=== PATIENT | male | born 1960 | race Caucasian/White ===

== ENCOUNTER 2024-10-05 07:25 | Outpatient (CLI) | payer OTHER, SELFPAY ==
--- OUTSIDE RECORDS SUMMARY | 2024-10-05 07:35 | XMS_ITS | Referral Summary ---
Author Organization [place] [id number] [facility] Address [address] [place] [address] Care Team Providers Care Camera Operator Name Role Phone No, Physician Primary Care Provider [phone] Allergies No known active allergies Medications rosuvastatin (CRESTOR) 10 mg tablet Take 10 mg by mouth nightly Active amiodarone (PACERONE) 400 mg tabletIndications :Prevention of Recurrent Atrial Fibrillation Take 1 tablet (400 mg total) by mouth 2 (two) times a day for 4 days 8 tablet 0 Active amiodarone (PACERONE) 200 mg tabletIndications :Prevention of Recurrent Atrial Fibrillation Take 1 tablet (200 mg total) by mouth daily 30 tablet 1 0 Active aspirin 81 mg enteric coated tablet Take 1 tablet (81 mg total) by mouth daily 30 tablet 11 0 Active metoprolol (LOPRESSOR) 25 mg tablet Take 0.25 tablets (6.25 mg total) by mouth 2 (two) times a day 15 tablet 1 0 Active traMADol (ULTRAM) 50 mg tablet Take 1 tablet (50 mg total) by mouth every 6 (six) hours as needed for pain 0 Active Active Problems Problem Noted Date Diagnosed Date Coronary artery disease of n ative heart with stable angina pectoris 07/04/2019 Overview (07/04/2019): Added automatically from request for surgery [id number] Social History Tobacco Use Types Packs/Day Years Used Date Smoking Tobacco: Never Smokeless Tobacco: Never PHQ-2 Answer Date Recorded PHQ-2 Score 0 07/04/2019 Sex and Gender Information Value Date Recorded Sex Assigned at Not on file 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 Gender Identity Not on file Sexual Orientation Not on file Last Filed Vital Signs Vital Sign Reading Time Taken Comments Blood Pressure 139/72 08/09/2019 11:17 AM CDT Pulse 72 08/09/2019 11:17 AM CDT Temperature 36.8 C (98.2 F) 08/09/2019 11:17 AM CDT Respiratory Rate 14 08/09/2019 11:17 AM CDT Oxygen Saturation 98% 07/11/2019 3:00 PM OFFAL SEPARATOR Inhaled Oxygen Concentration - - Weight 89.8 kg (198 lb) 08/09/2019 11:17 AM CDT Height 172.7 cm (5' 8 ) 08/09/2019 11:17 AM CDT Body Mass Index 30.11 08/09/2019 11:17 AM CDT Plan of Treatment Not on file Medical Devices Explanted Type Area Air Conditioning Equipment Mechanic Device Identifier Shelf Expiration Date Model / Serial / Lot Medtronic Card Vasc Surgery [id number] Dolliver 1.5mm 14mm Radiopaque Bulb Tapered Tip Soft - [id number] Explanted:Qty: 1 on 07/06/2019 at [facility] [employer] 01/27/2022 311 50 / / Medtronic Card Vasc Surgery [id number] Dolliver 1mm 14mm Bulb Tapered Tip Radiopaque Intracoronary - [id number] Explanted:Qty: 1 on 07/06/2019 at [facility] [employer] N/A: Heart [employer] 04/28/2022 [id number] / / [id number] Insurance [place] OOS BLUE ACCESS OOS TRADITIONAL Advance Directives For more information, please contact: [phone] * Full Code (Latest Code Status on File) Date Activated Date Inactivated Comments 07/05/2019 9:10 AM 07/11/2019 10:21 PM Care Teams Camera Operator Relationship Specialty Start Date End Date No, Physician PCP - General 07/11/19
--- OUTSIDE RECORDS SUMMARY | 2024-10-05 07:36 | XMS_ITS | Clinical Summary ---
Author Organization [place] [id number] [facility] Address [address] [place] [address] Care Team Providers Care Vamp Stitcher Name Role Phone No, Physician Primary Care Provider [phone] Allergies No known active allergies Medications rosuvastatin [...] (07/04/2019): Added automatically from request for surgery [id number] Surgical History Surgery Date Site/Laterality Comments APPENDECTOMY Medical History Medical History Date Comments Coronary artery disease Hypertension Social History Tobacco Use Types Packs/Day Years Used Date Smoking Tobacco: Never Smokeless Tobacco: Never PHQ-2 Answer Date Recorded PHQ-2 Score 0 07/04/2019 Sex and Gender Information Value Date Recorded Sex Assigned at Not on file Legal Sex Male 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 PROGRAM COORDINATOR Gender Identity Not on file Sexual Orientation Not on file Obstetrics History Last Filed Vital Signs Vital Sign Reading Time Taken Comments Blood Pressure 139/72 08/09/2019 11:17 AM CDT Pulse 72 08/09/2019 11:17 AM CDT Temperature 36.8 C (98.2 F) 08/09/2019 11:17 AM CDT Respiratory Rate 14 08/09/2019 11:17 AM CDT Oxygen Saturation 98% 07/11/2019 3:00 PM BARIATRIC PROGRAM COORDINATOR Inhaled Oxygen Concentration - - Weight 89.8 kg (198 lb) 08/09/2019 11:17 AM CDT Height 172.7 cm (5' 8 ) 08/09/2019 11:17 AM CDT Body Mass Index 30.11 08/09/2019 11:17 AM CDT Plan of Treatment Not on file Medical Devices Explanted Type Area Poultry Scalder Device Identifier Shelf Expiration Date Model / Serial / Lot Medtronic Card Vasc Surgery [id number] Bernard 1.5mm 14mm Radiopaque Bulb Tapered Tip Soft - [id number] Explanted:Qty: 1 on 07/06/2019 at [facility] [employer] 01/27/2022 311 50 / / Medtronic Card Vasc Surgery 23311 Bernard 1mm 14mm Bulb Tapered Tip Radiopaque Intracoronary - [id number] Explanted:Qty: 1 on 07/06/2019 at [facility] [employer] N/A: Heart [employer] 04/28/2022 [id number] / / [id number] Insurance [place] OOS BLUE ACCESS OOS Advance Directives For more information, please contact: [phone] * Full Code (Latest Code Status on File) Date Activated Date Inactivated Comments 07/05/2019 9:10 AM 07/11/2019 10:21 PM Care Teams Vamp Stitcher Relationship Specialty Start Date End Date No, Physician PCP - General 07/11/19
--- OUTSIDE RECORDS SUMMARY | 2024-10-05 07:36 | XMS_ITS | Data Portability ---
Author Organization [facility] Address [address] [facility] [place] [address] Care Team Providers Care Poker Machine Attendant Name Role Phone JOVAN RILEY Primary Care Provider [phone] Assessment Encounter Date Assessment Date Assessment LastModified by Organization Details LastModified Time 11/10/2023 11/10/2023 We did discuss his blood pressure he does not want to take any more medicine right now he will try more conservative measures lose little weight to get them dyslipidemia Zetia rosuvastatin hypertension valsartan CAD discussed. Khang. Follow-up 6 months [email or web address] Not available 11/12/2023 18:26:01 05/07/2024 05/07/2024 he will consider immunizations that he is behind on he does not want any HIV screening he is not sure he is going to get a COVID shot blood pressure is up a little bit today he says that he is not going to change any medications right now because it looked good at industrial technologist office last time that he was there healthy lifestyle care instructions he will try to eat a little bit smaller stay a little bit more active lose a few lb and see if we can control it conservatively follow up 4 months Not available 05/13/2024 16:16:06 09/06/2024 09/06/2024 Continue current therapy healthy lifestyle care instructions blood work has been ordered see me back in 6 months [email or web address] Not available 09/08/2024 17:13:58 Plan of Treatment Reminders Order Date Submit Date Provider Last Modified By Organization Details Last Modified Time Details Appointments ANY 15 2024 01:30P M Jovan Riley MD Not available Not available Not available Lab lipid panel, serum 2024 025 [email or web address] [facility], [address] [facility], [facility] [address], [place], [address], 09/27/2024 10:48:07 CMP, serum or plasma 2024 025 jbrownema [facility], [address] [facility], [facility], [place], [address], 09/27/2024 10:48:07 CBC w/ auto diff 2024 025 [facility], [address] [facility], [facility], [place], [address], 09/27/2024 10:48:07 noninvasi ve colorecta l cancer DNA + occult blood screening , QL, stool 2023 024 [facility] (Cologuard Orders Only), [address], [address], [place], [address], 11/25/2023 13:28:09 Referral None recorded. Procedures None recorded. Surgeries None recorded. Imaging None recorded. Medication Orders None recorded. Patient TargetsNo targets recorded. Patient Instructions Encounter Date Encounter Id Patient Instructions Last Modified By Organization Details Last Modified Time 05/07/2024 [id number] A healthy lifestyle: care instructions Not available 05/07/2024 14:55:00 09/06/2024 [id number] A healthy lifestyle: care instructions [email or web address] Not available 09/06/2024 18:05:49 Reason for Referral None Reported. Results Created Date Observation Date Name Description Value Unit Range Abnormal Flag Note LastModifiedBy Organization Detail LastModifiedTime 11/10/1911/11/2023 CMP14 glucose 105 mg/dL 70-99 above high normal Not Available [facility] ([facility]) [address] [facility], [place], [address], 11/11/2023 12:38:01 11/10/19 24 11/11/2023 CMP14 BUN 11 mg/dL 8-27 Not Available [facility] ([facility]) [address] [facility], [place], [address], 11/11/2023 12:38:01 11/10/19 24 11/11/2023 CMP14 creatinine 0.83 mg/dL 0.76-1 .27 Not Available [facility] ([facility]) [address], [place], [address], 11/11/2023 12:38:01 11/10/19 24 11/11/2023 CMP14 eGFR 100 mL/mi n/1.7 3 >59 Not Available [facility] ([facility]) [address] [place], [address], 11/11/2023 12:38:01 11/10/19 24 11/11/2023 CMP14 BUN/creatini ne ratio 13 10-24 Not Available [facility] ([facility]) [address] [place], [address], 11/11/2023 12:38:01 11/10/19 24 11/11/2023 CMP14 sodium 137 mmol/ L 134-14 4 Not Available [facility] ([facility]) [address] [place], [address], 11/11/2023 12:38:01 11/10/19 24 11/11/2023 CMP14 potassium 4.5 mmol/ L 3.5-5. 2 Not Available [facility] ([facility]) [address] [place], [address], 11/11/2023 12:38:01 11/10/19 24 11/11/2023 CMP14 chloride 102 mmol/ L 96-106 Not Available [facility] ([facility]) [address] [place], [address], 11/11/2023 12:38:01 11/10/19 24 11/11/2023 CMP14 carbon dioxide, total 23 mmol/ L 20-29 Not Available [facility] ([facility]) [address] [place], [address], 11/11/2023 12:38:01 11/10/19 24 11/11/2023 CMP14 calcium 8.8 mg/dL 8.6-10 .2 Not Available [facility] ([facility]) [address] [place], [address], 11/11/2023 12:38:01 11/10/19 24 11/11/2023 CMP14 protein, total 6.8 g/dL 6.0-8. 5 Not Available [facility] ([facility]) [address] [facility] [place], [address], 11/11/2023 12:38:01 11/10/19 24 11/11/2023 CMP14 albumin 4.1 g/dL 3.9-4. 9 Not Available [facility] ([facility]) [address] [facility] [place], [address], 11/11/2023 12:38:01 11/10/19 24 11/11/2023 CMP14 globulin, total 2.7 g/dL 1.5-4. 5 Not Available [facility] ([facility]) [address] [facility] [place], [address], 11/11/2023 12:38:01 11/10/19 24 11/11/2023 CMP14 A/G ratio 1.5 Not Availa ble [facility] ([facility]) [address] [facility] [place], [address], 11/11/2023 12:38:01 11/10/19 24 11/11/2023 CMP14 bilirubin, total 0.6 mg/dL 0.0-1. 2 Not Available [facility] ([facility]) [address] [facility] [place], [address], 11/11/2023 12:38:01 11/10/19 24 11/11/2023 CMP14 alkaline phosphatase 97 IU/L 44-121 Not Available [facility] ([facility]) [address] [facility] [place], [address], 11/11/2023 12:38:01 11/10/19 24 11/11/2023 CMP14 AST (SGOT) 35 IU/L 0-40 Not Avail able [facility] ([facility]) [address] [facility] [place], [address], 11/11/2023 12:38:01 11/10/19 24 11/11/2023 CMP14 ALT (SGPT) 27 IU/L 0-44 Not Avail able [facility] ([facility]) [address] [facility] [place] [place], [address], 11/11/2023 12:38:01 11/10/19 24 11/11/2023 LIPID PANEL cholesterol, total 88 mg/dL 100-19 9 below low normal Not Available [facility] ([facility]) [address] [place], [address], 11/11/2023 12:38:02 11/10/19 24 11/11/2023 LIPID PANEL triglyceride s 61 mg/dL 0-149 Not Available [facility] ([facility]) [address] [place], [address], 11/11/2023 12:38:02 11/10/19 24 11/11/2023 LIPID PANEL HDL cholesterol 34 mg/dL >39 below low normal Not Available [facility] ([facility]) [address] [place], [address], 11/11/2023 12:38:02 11/10/19 24 11/11/2023 LIPID PANEL VLDL cholesterol brent 14 mg/dL 5-40 Not Available [facility] ([facility]) [address] [place], [address], 11/11/2023 12:38:02 11/10/19 24 11/11/2023 LIPID PANEL LDL chol calc ([facility]) 40 mg/dL 0-99 Not Available [facility] ([facility]) [address] [facility], [place], [address], 11/11/2023 12:38:02 11/10/19 24 11/11/2023 CBC WITH DIFFE RENTI AL/PL ATELE T WBC 6.1 x10e3 /uL 3.4-10 .8 Not Available [facility] ([facility]) [address] [facility], [place], [address], 11/11/2023 12:38:02 11/10/19 24 11/11/2023 CBC WITH DIFFE RENTI AL/PL ATELE T RBC 5.73 x10e6 /uL 4.14-5 .80 Not Available [facility] ([facility]) [address] [facility], [place], [address], 11/11/2023 12:38:02 11/10/19 24 11/11/2023 CBC WITH DIFFE RENTI AL/PL ATELE T hemoglobin 16.6 g/dL 13.0-1 7.7 Not Available [facility] ([facility]) [address] [facility], [place], [address], 11/11/2023 12:38:02 11/10/19 24 11/11/2023 CBC WITH DIFFE RENTI AL/PL ATELE T hematocrit 48.8 % 37.5-5 1.0 Not Available [facility] ([facility]) [address] [place], [address], 11/11/2023 12:38:02 11/10/19 24 11/11/2023 CBC WITH DIFFE RENTI AL/PL ATELE T MCV 85 fL 79-97 Not Available [facility] ([facility]) [address] [facility], [place], [address], 11/11/2023 12:38:02 11/10/19 24 11/11/2023 CBC WITH DIFFE RENTI AL/PL ATELE T MCH 29.0 pg 26.6-3 3.0 Not Available [facility] ([facility]) [address] [facility], [place], [address], 11/11/2023 12:38:02 11/10/19 24 11/11/2023 CBC WITH DIFFE RENTI AL/PL ATELE T MCHC 34.0 g/dL 31.5-3 5.7 Not Available [facility] ([facility]) [address] [facility], [place], [address], 11/11/2023 12:38:02 11/10/19 24 11/11/2023 CBC WITH DIFFE RENTI AL/PL ATELE T RDW 13.2 % 11.6-1 5.4 Not Available [facility] ([facility]) [address] [facility], [place], [address], 11/11/2023 12:38:02 11/10/19 24 11/11/2023 CBC WITH DIFFE RENTI AL/PL ATELE T platelets 273 x10e3 /uL 150-45 0 Not Available [facility] ([facility]) [address] [facility], [place], [address], 11/11/2023 12:38:02 11/10/19 24 11/11/2023 CBC WITH DIFFE RENTI AL/PL ATELE T neutrophils 56 % notest ab. Not Available [facility] ([facility]) [address] [place], [address], 11/11/2023 12:38:02 11/10/19 24 11/11/2023 CBC WITH DIFFE RENTI AL/PL ATELE T lymphs 30 % notest ab. Not Available [facility] ([facility]) [address] [place], [address], 11/11/2023 12:38:02 11/10/19 24 11/11/2023 CBC WITH DIFFE RENTI AL/PL ATELE T monocytes 9 % notest ab. Not Available [facility] ([facility]) [address] [place], [address], 11/11/2023 12:38:02 11/10/19 24 11/11/2023 CBC WITH DIFFE RENTI AL/PL ATELE T eos 4 % notest ab. Not Available [facility] ([facility]) [address] [facility], [place], [address], 11/11/2023 12:38:02 11/10/19 24 11/11/2023 CBC WITH DIFFE RENTI AL/PL ATELE T basos 1 % notest ab. Not Available [facility] ([facility]) [address] [facility], [place], [address], 11/11/2023 12:38:02 11/10/19 24 11/11/2023 CBC WITH DIFFE RENTI AL/PL ATELE T neutrophils (absolute) 3.4 x10e3 /uL 1.4-7. 0 Not Available [facility] ([facility]) [address] [facility], [place], [address], 11/11/2023 12:38:02 11/10/19 24 11/11/2023 CBC WITH DIFFE RENTI AL/PL ATELE T lymphs (absolute) 1.8 x10e3 /uL 0.7-3. 1 Not Available [facility] ([facility]) [address] [place], [address], 11/11/2023 12:38:02 11/10/19 24 11/11/2023 CBC WITH DIFFE RENTI AL/PL ATELE T monocytes(ab solute) 0.6 x10e3 /uL 0.1-0. 9 Not Available [facility] ([facility]) [address] [place], [address], 11/11/2023 12:38:02 11/10/19 24 11/11/2023 CBC WITH DIFFE RENTI AL/PL ATELE T eos (absolute) 0.2 x10e3 /uL 0.0-0. 4 Not Available [facility] ([facility]) [address] [facility], [place], [address], 11/11/2023 12:38:02 11/10/19 24 11/11/2023 CBC WITH DIFFE RENTI AL/PL ATELE T baso (absolute) 0.0 x10e3 /uL 0.0-0. 2 Not Available [facility] ([facility]) [address] [facility], [place], [address], 11/11/2023 12:38:02 11/10/19 24 11/11/2023 CBC WITH DIFFE RENTI AL/PL ATELE T immature granulocytes 0 % notest ab. Not Available [facility] ([facility]) [address] [facility], [place], [address], 11/11/2023 12:38:02 11/10/19 24 11/11/2023 CBC WITH DIFFE RENTI AL/PL ATELE T immature grans (abs) 0.0 x10e3 /uL 0.0-0. 1 Not Available [facility] ([facility]) [address] [facility], [place], [address], 11/11/2023 12:38:02 11/10/19 24 11/11/2023 PROST ATE-S PECIF IC AG prostate specific Ag 0.6 NG/mL 0.0-4. 0 Dany ECLIA metho dolog y. Accor ding to the Ameri can Urolo gical Assoc iatio n, Serum PSA shoul d decre ase and remai n at undet ectab le level s after radic al prost atect amanda. The AUA defin es bioch emica l recur rence as an initi al PSA value 0.2 ng/mL or great er follo wed by a subse quent confi rmato ry PSA value 0.2 ng/mL or great er. Value s obtai marshall with diffe rent assay metho ds or kits canno t be used inter gamboa eably . Resul ts canno t be inter prete d as absol deering evide nce of the prese nce or absen ce of hany rodriguez se. Not Available [facility] ([facility]) [address] [facility], [place], [address], 11/11/2023 12:38:03 11/21/19 24 11/21/2023 COLOG UARD cologuard result reportable NEGATI VE negati ve normal NEGAT BERNARDA TEST RESUL T. A negat bernarda Colog uard resul t indic ates a low likel ihood that a color ectal cance r (CRC) or advan yuly adeno ma (ayad omato us polyp s with more advan yuly pre-m align ant featu res) is prese nt. The chanc e that a perso n with a negat bernarda Colog uard test has a color ectal cance r is less than 1 in 1500 (nega tive predi ctive value >99.9 %) or has an advan yuly adeno ma is less than 5.3% (nega tive predi ctive value 94.7% ). These data are based on a prosp ectiv e cross -sect ional study of ,00 0 indiv idual s at [place] ge risk for color ectal cance r who were scree marshall with both Colog uard and colon oscop y. (Luz Dia et al, N Engl J Med 2014; 370(1 4):12 86-12 97) The lance l value (refe rence range ) for this assay is negat bernarda. COLOG UARD RE-SC REENI NG RECOM MENDA TION: Perio dic color ectal cance r scree sherif is an impor tant part of preve ntive healt hcare for asymp tomat ic indiv idual s at [place] ge risk for color ectal cance r. Follo wing a negat bernarda Colog uard resul t, the Ameri can Cance r Socie ty and U.S. Multi -Soci ety Task Force scree sherif guide lines recom mend a Colog uard re-sc reeni ng inter mary of 3 years . Refer ences : Ameri can Cance r Socie ty Guide line for Color ectal Cance r Scree sherif: https ://ww w.can cer.o rg/ca ncer/ colon -rect al-ca ncer/ detec tion- diagn osis- stagi ng/ac s-rec ommen datio ns.ht ml.; Valeriano BLANCO, Ema scruggs CR, Virgen StilesK, Color ectal Cance r Scree sherif: Recom menda tions for Physi cians and Patie nts from the U.S. Multi -Soci ety Task Force on Color ectal Cance r ScreFito mallory rolog y 2017; 112:1 016-1 030. TEST DESCR IPTIO N: [place] site algor ithmi c kathy sis of stool DNA-b eric hoffman with hemog lobin immun oassa y. Quant itati ve value s of indiv idual bioma rkers are not repor table and are not assoc iated with indiv idual bioma rker resul t refer ence range s. Colog uard is inten ded for color ectal cance r scree sherif of adult s of eithe r sex, 45 years or older , who are at the medical center for color ectal cance r (CRC) . Colog uard has been appro alyse for use by the U.S. FDA. The perfo rmanc e of Colog uard was estab lishe d in a cross secti onal study of the medical center adult s aged 50-84 . Colog uard perfo rmanc e in patie nts ages 45 to 49 years was estim ated by danuta-g randyp kathy sis of near- age group s. Colon oscop ies perfo rmed for a posit bernarda resul t may find as the most clini jason signi ficcarlos t lesio n: color ectal cance r [4.0% ], advan yuly adeno ma (incl uding sessi le barry steven polyp s great er than or equal to 1cm diame ter) [20%] or non- advan yuly adeno ma [31%] ; or no color ectal neopl kacey [45%] . These estim ates are deriv ed from a prosp ectiv e cross -sect ional scree sherif study of 10,00 0 indiv idual s at [place] ge risk for color ectal cance r who were scree marshall with both Colog uard and colon oscop y. (Luz Dia et al, N Engl J Med 2014; 370(1 4):12 86-12 97.) Colog uard may produ ce a false negat bernarda or false posit bernarda resul t (no color ectal cance r or preca ncero us polyp prese nt at colon oscop y follo w up). A negat bernarda Colog uard test resul t does not guara ntee the absen ce of CRC or advan yuly adeno ma (pre- cance r). The curre nt Colog uard scree sherif inter mary is every 3 years . (Amer ican Cance r Socie ty and U.S. Multi -Soci ety Task Force ). Colog uard perfo rmanc e data in a 10,00 0 patie nt pivot al study using colon oscop y as the refer ence metho d can be acces sed at the follo wing locat ion: www.e xactl abs.c om/re estelle . Addit ional descr iptio n of the Colog uard test proce ss, warni ngs and preca ution s can be found at www.c ologu liz.c om. Not Available [facility] (Cologuard Orders Only) [address], [place], [address], 11/25/2023 13:28:08 Result Notes None recorded. Problems Name Problem SNOMED Code Status Onset Date Resolution Date Notes Provider Name and Address Organization Details Recorded Time Screening for malignant neoplasm of prostate Active 2023 Ava Leonard MA null, [place] - [facility] 4 10:36:16 Essential hypertensio n 96400294 Active 2023 Ava Leonard [place], [place] [facility] 4 10:36:18 Dyslipidemi a 462128028 Active 2023 Ava Leonard [place] null, [place] [facility] 4 10:36:19 Coronary atheroscler osis 686099907 Active 2023 Jovan Riley MD Attn: Paolo esquivel,[address] [facility], [place], [address], [facility] - [facility] 4 18:25:20 Hyperlipide rachel 64561717 Active 2023 Jovan Riley MD Attn: Paolo esquivel,[address] [facility], [place], [address], [facility] - [facility] 4 18:25:25 HIV screening declined 4027748293749 00 Active 2023 Jovan Riley MD Attn: Paolo esquivel,[address] [facility], [place], [address], [facility] - [facility] 4 16:16:42 Problem Notes None recorded. Medical Equipment None Reported. Allergies No known drug allergies Medications Name Sig Start Date Stop Date Status Note LastModified by Organization Details LastModified Time azithromyci n 250 mg tablet TAKE 2 TABLETS BY MOUTH TODAY, THEN TAKE 1 TABLET DAILY FOR 4 DAYS DIRECTED 09/06 completed Not Available Not Available Not Available valsartan 80 mg tablet TAKE 1 TABLET BY MOUTH TWICE A DAY active Not Available Not Available No t Available aspirin 81 mg tablet,leatha yed release TAKE 1 TABLET BY MOUTH EVERY DAY active Not Available Not Available No t Available ezetimibe 10 mg tablet TAKE 1 TABLET BY MOUTH EVERY DAY active Not Available Not Available No t Available rosuvastati n 20 mg tablet TAKE 1 TABLET BY MOUTH EVERY DAY active Not Available Not Available No t Available sildenafil (pulmonary hypertensio n) 20 mg tablet TAKE 3 TABLETS BY MOUTH 45 MINUTES PRIOR TO INTERCOUR SE 2024 active Not Available Not Available Not Avai lable Xarelto 2.5 mg tablet TAKE 1 TABLET BY MOUTH TWICE A DAY active Not Available Not Available No t Available Vitals Date Recorded Body height Body mass index (BMI) Body weight Heart rate Oxygen saturation Oxygen saturation in Arterial blood by Pulse oximetry Systolic blood pressure Diastolic blood pressure Provider Name and Address Organization Details Last Updated DateTime 4 172.72 cm 33.6 kg/m2 472409. 91 g 54 /min 97 % 97 % 142 mm[Hg] 82 mm[Hg] Carlie Vargas MA [place] - [facility] 4 10:03:00 Date Recorded Body height Body mass index (BMI) Body weight Heart rate Oxygen saturation Oxygen saturation in Arterial blood by Pulse oximetry Systolic blood pressure Diastolic blood pressure Provider Name and Address Organization Details Last Updated DateTime 4 172.72 cm 33.3 kg/m2 57033.0 1 g 57 /min 96 % 96 % 142 mm[Hg] 82 mm[Hg] [facility] 4 14:51:13 Date Recorded Body height Body mass index (BMI) Body weight Heart rate Oxygen saturation Oxygen saturation in Arterial blood by Pulse oximetry Systolic blood pressure Diastolic blood pressure Provider Name and Address Organization Details Last Updated DateTime 5 172.72 cm 31.9 kg/m2 33310.0 4 g 55 /min 95 % 95 % 134 mm[Hg] 88 mm[Hg] [facility] 5 14:17:29 Social History Question Answer Notes LastModified by Organizat ion Details LastModified Time Tobacco Smoking Status Former Smoker Carlie Vargas MA [facility] 11/10/2023 09:58:49 Do You Have An Advance Directive? No Information not available 05/07/2024 What Is Your Level Of Alcohol Consumption? Occasional Information not available 11/10/2023 Are You Blind Or Do You Have Difficulty Seeing? No Information not available 11/10/2023 In The 14 Days Before Symptom Onset, Have You Had Close Contact With A Laboratory-confir med COVID-19 While That Case Was Ill? No Information not available 05/07/2024 In The 14 Days Before Symptom Onset, Have You Had Close Contact With A Person Who Is Under Investigation For COVID-19 While That Person Was Ill? No Information not available 05/07/2024 Have You Been To An Area Known To Be High Risk For COVID-19? No Information not available 05/07/2024 Are You Deaf Or Do You Have Serious Difficulty Hearing? Yes Information not available 11/10/2023 Are There Any Guns Present In Your Home? No Information not available 05/07/2024 What Was The Date Of Your Most Recent Tobacco Screening? 09/06/2024 Information not available 09/06/2024 What Is Your Relationship Status? Information not available 11/10/2023 Do You Use Your Seat Belt Or Car Seat Routinely? Yes Information not available 05/07/2024 Do You Have Smoke And Carbon Monoxide Detectors In Your Home? Yes Information not available 05/07/2024 How Much Tobacco Do You Smoke? 1 PPD Information not available 11/10/2023 Do You Use Any Illicit Or Recreational Drugs? No Information not available 05/07/2024 Do You Use Sunscreen Routinely? No Information not available 05/07/2024 Has Tobacco Cessation Counseling Been Provided? No Information not available 09/06/2024 How Many Years Have You Smoked Tobacco? 6 Information not available 11/10/2023 Do You Or Have You Ever Used Any Other Forms Of Tobacco Or Nicotine? No Information not available 09/06/2024 Sex: Male Functional Status Question Answer Note LastModified by Organization D etails LastModified Time Are you able to care for yourself? Yes Information n ot available 11/10/2023 Mental Status None recorded. Family History Nothing Reported. Medical History Condition Response Coronary Artery Disease Y High Blood Pressure Y High Cholesterol Y Immunizations Vaccine Type Date Status Note Provider Nam e and Address Organization Details Recorded Time COVID-19, mRNA, LNP-S, PF, 100 mcg/0.5mL dose or 50 mcg/0.25mL dose 07/25/2020 completed RHODA [place], [place] - [facility] 11/10/2023 11:29:03 COVID-19, mRNA, LNP-S, PF, 100 mcg/0.5mL dose or 50 mcg/0.25mL dose 08/22/2020 completed RHOD[facility] [place] [facility] 11/10/2023 11:29:03 Influenza, split virus, quadrivalent, PF 02/28/2020 completed [facility] [facility] 11/10/2023 11:29:03 Influenza, split virus, quadrivalent, PF 04/16/2021 completed [facility] [place] [facility] 11/10/2023 11:29:03 Past Encounters Encounter ID Performer Location Encounter Start Date Encounter Closed Date Diagnosis/Indication Diagnosis SNOMED-CT Code Diagnosis ICD10 Code Diagnosis Note [id number] Jovan Riley MD [email or web address] [place] [address] [place] [id number] 11/10/2023 09:41:12 11/10/2023 11:00:30 Screening for malignant neoplasm of colon 417056456 Z12.11 Coronary atherosclerosis 849583502 I25.10 Essential hypertension 44983692 I10 Hyperlipidemia 40039323 E78.5 Dyslipidemia 919321107 E 78.5 [id number] Jovan Riley MD [email or web address] [place] [address] [place] [id number] 05/07/2024 14:08:49 05/07/2024 15:54:38 Body mass index 30+ - obesity 817570036 Z68.33 Obesity 755038041 E66.9 Essential hypertension 44554466 I10 Dyslipidemia 419452864 E 78.5 Coronary atherosclerosis 672974460 I25.10 HIV screen ing declined 6753268683 89083 Z53.20 [id number] Jovan Riley MD [facility] [employer] [address] [place] [id number] 09/06/2024 13:55:12 09/06/2024 15:00:36 Body mass index 30+ - obesity 237546447 Z68.33 Obesity 538013005 E66.9 Essential hypertension 85568556 I10 Dyslipidemia 049621322 E 78.5 Hyperlipidemia 35527959 E78.5 Coronary atherosclerosis 013949208 I25.10 Health Concerns Section Related Observation LastModified by Organization Detai ls LastModified Time None Recorded Concern Status LastModified by Organization Details LastModified Time None Recorded Advance Directives Directive N: Payers Encounter Date Sequence Insurance Name Policy Number Policy Little Covered Member ID Little Member ID Guarantor Name 11/10/2023 1 [employer] [id number] Leonides Yang [id number] Leonides Yang 05/07/2024 1 [employer] [id number] Leonides Stewart Trey [id number] Leonides Yang 09/06/2024 1 [employer] [id number] Leonides Stewart Trey [id number] Leonides Yang Notes Date Note Type Note Provider Name and Address Organization Details Recorded Time 11/10/2023 text/html 62-year-old for follow-up of medical problems CAD CABG no chest pain or shortness of breath. Dyslipidemia taking rosuvastatin no side effects. Hypertension valsartan doing well no problems. Also uses Zetia because LDL not at goal Jovan Riley MD Attn: [address] [facility], [place], [address], [facility] - [facility] 11/12/2023 18:26:25 05/07/2024 text/html hypertension no headache or dizziness. Coronary atherosclerosis status post CABG he has not any chest pain or shortness of breath. Dyslipidemia does try to watch diet best that he can Jovan Riley MD Attn: [employer] [facility], [place], [address], [facility] - [facility] 05/13/2024 16:17:05 09/06/2024 text/html 62-year-old for follow-up of medical problems CAD CABG no chest pain or shortness of breath. Dyslipidemia taking rosuvastatin no side effects. Hypertension valsartan doing well no problems. Also uses Zetia because LDL not at goal Jovan Riley MD Attn: [address] [facility], [place], [address], [place] - [facility] 09/08/2024 17:14:38
--- OUTSIDE RECORDS SUMMARY | 2024-10-05 07:36 | XMS_ITS | CONTINUITY OF CARE DOCUMENT ---
Author Name liam wheeler Address Unknown Organization [facility] Address [address] [place] [address] Phone [phone] Care Team Providers Care Dentures Lab Technician Name Role Phone Jayden KENDRICK, Jaden Juarez Unavailable LG KENDRICK, JOVAN Huff Unavailable [phone] JOVAN CASTANON MD Unavailable PROBLEMS Condition Status Date Provider Notes Preop exam completed - Steven Stover MD Abnormal cardiovascular stre ss test completed - Steven Stover MD HTN essential active Steven Stover MD Valvular heart disease active Steven Stover MD Hypertension active Jaden peres MD Cardiology examination active Chandler Wheeler i, NP Preop cardiovasc. examination active Jaden Carpenter MD Mitral regurgitation active Jaden Carpenter MD Hyperlipidemia active Jaden madden MD Exposure to SARS-associated coronavirus;neg igg active Jaden Carpenter MD Impotence active Steven Stover MD Obesity active Steven Stover MD Diastolic CHF active Jaden monson MD Screening active Steven Stover MD CABG;raina, free radial and fr ee svg active Steven Stover MD SLEEP APNEA;mild active Steven Stover MD FAMILY HISTORY OF HEART DISEASE active So Stover MD dad had cad Snoring completed - Steven Stover MD Mitral regurgitation, moderate completed 2 - Steven Stover MD OLIVIA completed - Steven Stover MD HYPERCHOLESTEROLEMIA active Jaden Carpenter MD CAD;NEG CAROTID active Steven Stover MD Family History of Hypertension: completed - Steven Stover MD Family History of Hypertension: completed - Steven Stover MD ENCOUNTERS Date Type Provider Location Encounter Diag nosis 9 - 5 In-person encounter Office Visit Jaden Carpenter MD [facility] Cardiology examination 9 - 2 In-person encounter Office Visit Jaden Carpenter MD [facility] - 3 In-person encounter Office Visit Jaden Carpenter MD [facility] 1 - 2 In-person encounter Office Visit Jaden Carpenter MD [facility] Preop cardiovasc. examination 3 - 7 In-person encounter Office Visit Jaden Carpenter MD [facility] 1 - 4 In-person encounter Office Visit Jaden Carpenter MD [facility] 3 - 6 In-person encounter Office Visit Jaden Carpenter MD [facility] HyperlipidemiaHypertensionMitral regurgitation 9 - 5 In-person encounter Office Visit Jaden Carpenter MD [facility] 3 - 3 In-person encounter Office Visit Steven Stover MD [facility] Preop examFamily History of Hypertension:Family History of Hypertension:CAD;NEG CAROTIDAbnormal cardiovascular stress testOSAMitral regurgitation, moderateSnoringFAMILY HISTORY OF HEART DISEASESLEEP APNEA;mildCABG;raina, free radial and free svgScreeningDiastolic CHFObesityHTN essentialImpotenceValvular heart diseaseExposure to SARS-associated coronavirus;neg igg 3 - 3 In-person encounter Office Visit Jaden Carpenter MD [facility] 4 - 6 In-person encounter Office Visit Jaden Carpenter MD [facility] CAD;NEG CAROTIDHYPERCHOLESTEROLEMIA VITAL SIGNS Date Observation Value Provider Body Mass Index (Ratio) 33.51 kg/m2 Caitlyn Carpenter MD blood pressure, cuff size regular [facility] blood pressure, diastolic 84 mm[Hg] [facility] blood pressure, systolic 130 mm[Hg] [facility] oxygen saturation, oximetry 97 % [facility] respiratory rate E&M 12 /min [facility] pulse rate 71 /min [facility] weight E&M 220.4 [lb_av] [facility] height E&M 68 [in_i] [facility] Body Mass Index (Ratio) 46.67 kg/m2 Caitlyn Carpenter MD pulse rate 64 /min [facility] blood pressure, cuff size regular [facility] blood pressure, diastolic 64 mm[Hg] [facility] blood pressure, systolic 134 mm[Hg] [facility] oxygen saturation, oximetry 98 % [facility] respiratory rate E&M 16 /min Ava Alaniz iller weight E&M 307 [lb_av] [facility] height E&M 68 [in_i] [facility] Body Mass Index (Ratio) 35.27 kg/m2 Caitlyn Carpenter MD blood pressure, diastolic 78 mm[Hg] Li [facility] blood pressure, systolic 146 mm[Hg] Diane ogkayode pulse rate 60 /min Marco y blood pressure, cuff size regular Ja rret blood pressure, diastolic 78 mm[Hg] Ja rret blood pressure, systolic 146 mm[Hg] Jar ret oxygen saturation, oximetry 98 % respiratory rate E&M 12 /min Marco weight E&M 232 [lb_av] Marco y height E&M 68 [in_i] [facility] y Body Mass Index (Ratio) 34.97 kg/m2 Caitlyn Carpenter MD blood pressure, cuff size large Ke rri Gruenenfelder blood pressure, diastolic 101 mm[Hg] Ke rri Gruenenfelder blood pressure, systolic 165 mm[Hg] Sandy ri [facility] oxygen saturation, oximetry 98 % Maura Madelin respiratory rate E&M 16 /min Maura Chiqui abrahameldjamin pulse rate 59 /min Maura Dontao [facility] weight E&M 230 [lb_av] Maura Marconfe [facility] height E&M 68 [in_i] Maura Gruenenfe [facility] Body Mass Index (Ratio) 35.88 kg/m2 Caitlyn Carpenter MD blood pressure, diastolic 85 mm[Hg] Marcy mitchellLogkayode blood pressure, systolic 145 mm[Hg] Diane Chadwick blood pressure, diastolic 85 mm[Hg] Zully Boyd blood pressure, systolic 145 mm[Hg] Marc Boyd oxygen saturation, oximetry 96 % Rut Boyd respiratory rate E&M 18 /min Le Boyd pulse rate 64 /min Rut nair weight E&M 236 [lb_av] Rut nair blood pressure, cuff size regular Zully Boyd height E&M 68 [in_i] Rut nair Body Mass Index (Ratio) 35.73 kg/m2 Caitlyn Carpenter MD blood pressure, diastolic 98 mm[Hg] Li [facility] blood pressure, systolic 170 mm[Hg] Diane kLogkayode blood pressure, cuff size large Ke rri Shashiueneroxanne blood pressure, diastolic 98 mm[Hg] Ke rri Shashiuenenfelder blood pressure, systolic 170 mm[Hg] Sandy ri Madelin oxygen saturation, oximetry 98 % Maura Yusuf respiratory rate E&M 14 /min Maura hutchinson pulse rate 57 /min Maura Donato lder weight E&M 235 [lb_av] Maura Donato lder height E&M 68 [in_i] Maura Donato ld Body Mass Index (Ratio) 36.03 kg/m2 Caitlyn Carpenter MD blood pressure, diastolic 90 mm[Hg] Ch astity Geovanni blood pressure, systolic 153 mm[Hg] Susan stity Geovanni weight E&M 237 [lb_av] Chastity Geovanni oxygen saturation, oximetry 97 % Chastity Geovanni pulse rate 60 /min Chastity Geovanni respiratory rate E&M 16 /min Chastit y Geovanni height E&M 68 [in_i] Chastity Geovanni Body Mass Index (Ratio) 34.06 kg/m2 Caitlyn Carpenter MD blood pressure, diastolic 80 mm[Hg] Rh onda Betty blood pressure, systolic 130 mm[Hg] Rho nda Betty oxygen saturation, oximetry 96 % Coleenja Hernández pulse rate 70 /min Coleen Betty respiratory rate E&M 18 /min Coleen Betty weight E&M 224 [lb_av] Coleen Betty blood pressure, resting No Rhon jeremias Hernández blood pressure, cuff size regular Rh onjeremias Betty height E&M 68 [in_i] Coleen Betty Body Mass Index (Ratio) 32.69 kg/m2 So Stover MD blood pressure, cuff size regular Demarcus Morse RN blood pressure, diastolic 82 mm[Hg] Demarcus Morse RN blood pressure, systolic 122 mm[Hg] Lowell Morse RN respiratory rate E&M 16 /min Lowell wilhelm RN oxygen saturation, oximetry 98 % Lowell Morse RN temperature site temporal Yessica Tank sley temperature E&M 96.4 [degF] Yessica Tanks archana pulse rate 65 /min Lowell Morse RN weight E&M 215 [lb_av] Lowell Morse RN height E&M 68 [in_i] Tonsha Kaye Body Mass Index (Ratio) 31.17 kg/m2 Caitlyn Carpenter MD blood pressure, resting Yes Tons angulo Kaye oxygen saturation, oximetry 94 % Tonsha Kaye pulse rate 57 /min Tonsha Kaye respiratory rate E&M 16 /min Tonsha Akye blood pressure, diastolic 94 mm[Hg] To nsha Kaye blood pressure, systolic 152 mm[Hg] Darion Kaye weight E&M 205 [lb_av] Jose Kaye height E&M 68 [in_i] Joes Kaye ALLERGIES No Known Drug Allergies RESULTS Date Observation Value Provider Reference Range Interpretation Location pro brain natriuretic peptide 644 pg/mL [facility] 0-210 High coagulation managed by Mayra Arce TRAVEL DIRECTOR Mayra Arce international normalized ratio (INR) 1.1 Mouna Montero Normal prothrombin time (patient) 12.9 s Mouna Montero HISTORY OF MEDICATION USE Medication Status Instructions Dates Provider Indications Com ments rosuvastatin 20 mg tablet active TAKE 1 TABLET BY MOUTH EVERY DAY 07/30 Monica Rushielba valsartan 80 mg tablet active TAKE 1 TABLET BY MOUTH TWICE A DAY Kaity Jony ezetimibe 10 mg tablet active Take 1 tablet by mouth once a day Chandler Lemus NP valsartan 80 mg tablet completed TAKE 1 TABLET BY MOUTH TWICE A DAY 01/26 - Kaity Jony Xarelto 2.5 mg tablet active TAKE 1 TABLET TWICE A DAY 06/19 Kaity Jony Xarelto 2.5 mg tablet completed Take 1 tablet by mouth twice a day - 06/19 Mary De Luna aspirin 81 mg tablet,delayed release (DR/EC) active TAKE 1 TABLET BY MOUTH EVERY DAY 05/30 Monica Meehan valsartan 80 mg tablet completed - 12/17 Chandler Lemus NP Xarelto 2.5 mg tablet completed Take 1 tablet by mouth twice a day TAKE 1 TABLET TWICE A DAY - 11/24 Eda Moran Xarelto 2.5 mg tablet completed TAKE 1 TABLET TWICE A DAY 02/21 - Hailey Aranda aspirin 81 mg tablet,delayed release (DR/EC) completed Take 1 tablet by mouth once a day 02/17 - 05/30 Maura Yusuf hydrochlorothiazide 12.5 mg capsule completed Take 1 capsule by mouth once a day 01/09 - 12/17 Chandler Lemus NP sildenafil (pulm.hypertension) 20 mg tablet active TAKE 3 TABLETS BY MOUTH 45 MINUTES PRIOR TO INTERCOURSE Di Galarza Xarelto 2.5 mg tablet completed 1 tablet by mouth twice a day 10/30 - 02/21 Steven Stover MD Cialis 5 mg tablet completed 1 tablet by mouth once a day 10/30 - 01/09 Steven Stover MD Lasix 20 mg tablet completed 1 tablet by mouth every morning as needed 08/30 - 01/09 Steven Stover MD valsartan 80 mg tablet completed Take 1 tablet by mouth twice a day 07/31 - 01/26 Swapna Suarez ASPIR-LOW 81 MG ORAL TABLET DELAYED RELEASE completed 07/31 - 07/18 Coleen Hernández Crestor 20 mg tablet completed Take 1 tablet by mouth once a day 06/25 - 07/30 Monica Meehan TRAMADOL HCL 50 MG ORAL TABLET completed 07/11 - 10/30 Steven Stover MD #40, 6 days supply, Prescribed by CALEB SYKES, Filled 07/11/2019 METOPROLOL TARTRATE 25 MG ORAL TABLET completed one tablet twice a day 07/11 - 10/30 Steven Stover MD #15, 30 days supply, Prescribed by CALEB SYKES, Filled 07/11/2019 AMIODARONE HCL 400 MG ORAL TABLET completed 07/11 - 08/30 Fredy Peterson #8, 4 days supply, Prescribed by CALEB SYKES, Filled 07/12/2019 SOCIAL HISTORY Date Observation Value Provider personal history of marijuana use no Chandler Lemus NP alcohol use, average drinks per day social Chandler Lemus NP drug use no Chandler Lemus NP alcohol use yes Chandler Lemus NP smoking, year quit 1983 Chandler Reyna NP smoking, date started 1971 Chandler Lemus BLACK PULLER cigarette use yes Chandler Zimmermanreri BLACK PULLER smoking status Former smoker Chandler Zimmermanre ri BLACK PULLER drug use no Ava Bennett alcohol use yes Ava Bennett smoking, year quit 1983 [facility] smoking, date started 1971 Ava Bennett cigarette use yes Ava Bennett smoking status Former smoker Ava Bennett social history reviewed E&M revi ewed - no changes required Chandler Zimmermanreri BLACK PULLER social history E&M S moking History: Yael jarrett is a former smoker. Chandler Zimmermanreri BLACK PULLER drug use no Chandler Zimmermanreri BLACK PULLER alcohol use yes Chandler Zimmermanreri BLACK PULLER smoking status Former smoker Chandler Zimmermanre ri BLACK PULLER social history reviewed E&M revi ewed - no changes required Jaden Carpenter MD social history E&M S moking History: Yael jarrett is a former smoker. Jaden Carpenter MD Exercise counseling yes Maura cui smoking, year quit 1983 Maura womack smoking, date started 1971 Maura Yusuf cigarette use yes Maura recio smoking status Former smoker Maura oliveira Exercise counseling yes Ashleigh Boyd social history reviewed E&M revi ewed - no changes required Jaden Carpenter MD social history E&M S moking History: Yael jarrett is a former smoker. Jaden Carpenter MD smoking, year quit 1983 Maura womack smoking, date started 1971 Maura Yusuf cigarette use yes Maura recio smoking status Former smoker Maura oliveira social history reviewed E&M revi ewed - no changes required Jaden Carpenter MD social history E&M S moking History: Yael jarrett is a former smoker. Jaden Carpenter MD smoking, year quit 1983 Chastity Geovanni smoking, date started 1971 Chasti ty Geovanni cigarette use yes Chastity Geovanni smoking status Former smoker Di Hog ue social history reviewed E&M revi ewed - no changes required Jaden Carpenter MD social history E&M S moking History: Yael jarrett is a former smoker. Jaden Carpenter MD smoking status Former smoker Coleen Betty quit smoking, stage quit Steven hector MD social history E&M Smoking Histo ry: Yael jarrett is a former smoker. Steven Stover MD social history reviewed E&M revi ewed - no changes required Steven Stover MD social history E&M S moking History: Yael jarrett is a former smoker. Fredy Peterson social history reviewed E&M revi ewed - no changes required Fredy Peterson smoking status Former smoker Fredyescobar de dios smoking, year quit 1983 Tonsha Mo ss smoking, date started 1971 Tonsha Kaye cigarette use yes Tonsha Kaye cigarette use yes Jaden monson MD smoking status Former smoker Jaden hood MD social history E&M S moking History: Yael jarrett is a former smoker. Jaden Carpenter MD social history reviewed E&M revi ewed - no changes required Jaden Carpenter MD number of grandchildren Jaden Carpenter MD smoking, year quit 1983 Tonsha Mo ss smoking, date started 1971 [facility] FUNCTIONAL STATUS Date Observation Value Provider HRA, CV Assess/Plan, Angina (inactive) Management Plan continue current therapy Chandler Lemus NP HRA, CV Assess/Plan, Angina (inactive) Management Plan continue current therapy Jaden Carpenter MD HRA, CV Assess/Plan, Angina (inactive) Management Plan continue current therapy Chandler Lemus NP HRA, CV Assess/Plan, Angina (inactive) Management Plan continue current therapy Jaden Carpenter MD HRA, CV Assess/Plan, Angina (inactive) Management Plan continue current therapy Jaden Carpenter MD HRA, CV Assess/Plan, Angina (inactive) Management Plan continue current therapy Jaden Carpenter MD HRA, CV Assess/Plan, Angina (inactive) Management Plan continue current therapy Jaden Carpenter MD HRA, CV Assess/Plan, Angina (inactive) Management Plan continue current therapy Steven Stover MD HRA, CV Assess/Plan, Angina (inactive) Management Plan continue current therapy Jaden Carpenter MD HRA, CV Assess/Plan, Angina (inactive) Management Plan continue current therapy Jaden Carpenter MD FAMILY HISTORY Family Member Condition Father Family History of Co ngestive Heart Failure: Father Family History of Hy pertension: Mother Family History of Hy pertension: Father Family History of Co ngestive Heart Failure: INSURANCE PROVIDERS Payer name Policy type / Coverage type [place] [employer] green party ID [facility] [id number] 1 ADVANCE DIRECTIVES Name Date DISCUSSED - NO DECISION MADE TREATMENT PLAN Date Name Performer [id number],C, I MPRESSION: 1 . 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 2 . Severe left ventricular systolic dysfunction with left ventricular wall motion abnormality consistent with f indings of the nuclear stress test report. 3 . Elevated left ventricular end-diastolic pressure. 4 . Elevated systolic blood pressure. 5 . No evidence of abdominal aortic aneurysm noted. 6 . No significant valvular disease noted. s/p CABG for multi vessel CAD. 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 NO NEW SX DOING WELL LVEF WAS NL ON RECENT ECHO AND LDL IS 50 Chandler Lemus NP [id number],C, H is updated medication list for this problem includes: Crestor 20 Mg Tablet (Rosuvastatin) ..... 1 tablet by mouth once a day Chandler Lemus BLACK PULLER [id number],C, P er patient BP at home in the 130s B P today: 146/78 P rior BP: 165/101 (04/09/2022) The following medications were removed from the medication list: Hydrochlorothiazide 12.5 Mg Capsule (Hydrochlorothiazide) ..... Take 1 capsule by mouth once a day Valsartan 80 Mg Tablet (Valsartan) His updated medication list for this problem includes: Aspirin 81 Mg Tablet,delayed Release (dr/ec) (Aspirin) ..... Take 1 tablet by mouth every day Valsartan 80 Mg Tablet (Valsartan) ..... Take 1 tablet by mouth twice a day Valsartan 80 Mg Tablet (Valsartan) Hydrochlorothiazide 12.5 Mg Capsule (Hydrochlorothiazide) ..... Take 1 capsule by mouth once a day Chandler Lemus BLACK PULLER [id number],C, C ONCLUSIONS: echo 07/2021 1 . Normal left ventricular systolic function. Normal left ventricular size. Normal left ventricular wall thickness. Normal left v entricular diastolic function. E/E': 10.3 Left ventricular ejection fraction is measured at 60 %. 2 . Normal right ventricular size. Normal right ventricular systolic function. 3 . There is non-specific thickening of the mitral valve leaflets. Mild mitral valve prolapse involving the posterior mitral valve l eaflet. There is trace physiologic mitral valve regurgitation. 4 . There is trace physiologic tricuspid valve regurgitation. E lectronically Signed By: Escobar Carpenter MD, FACC 2 022-03-08 15:55:00 PRESETTER OPERATOR C C: Jaden Carpenter MD, FACC E lectronically signed by Jaden Carpenter MD on 08/13/2021 at 12:59 AM CONCLUSIONS: Echo 05/19/2022 1 . Septal motion consistent with post-operative state. Normal left ventricular systolic function. Normal left ventricular size. Normal left ventricular wall thickness. Mitral inflow Doppler demonstrates pseudonormal pattern consistent with diastolic d ysfunction. E/E': 12.5 Left ventricular ejection fraction is measured at 60 %. 2 . Mild enlargement of right ventricle. Normal right ventricular systolic function. 3 . The tricuspid valve is normal in appearance and function. There is mild tricuspid regurgitation. IVC is normal in size with n ormal respiratory response. The RA pressure is estimated at 5.0 mmHg Estimated peak pulmonary artery systolic pressure is 3 6.0 mmHg. Chandler Lemus NP [id number],C, C ONCLUSIONS: CAROTID US 07/2021 1 . Mild plaque with less than 50% stenosis of the internal carotid arteries bilaterally. 2 . Vertebral flow is antegrade bilaterally. No chest pain. Will continue current medication. Chandler Lemus NP [id number],C, C ONCLUSIONS: 1 . Mild plaque with less than 50% stenosis of the internal carotid arteries bilaterally. 2 . Vertebral flow is antegrade bilaterally. E lectronically signed by Jaden Carpenter MD on 08/20/2021 at 11:17 PM Jaden Carpenter MD [id number],C, H is updated medication list for this problem includes: Crestor 20 Mg Oral Tablet (Rosuvastatin calcium) ..... One tab. daily Jaden Carpenter MD [id number],S, H ome sleep study shows an AHI of 6.5 which is consistent with a diagnosis of mild OLIVIA. During the supine position, t he AHI increased to 24.3. Mean oxygen saturation of 96%, with the lowest being 89%. Jaden Carpenter MD [id number],C, H is updated medication list for this problem includes: Crestor 20 Mg Tablet (Rosuvastatin) ..... 1 tablet by mouth once a day Jaden Carpenter MD [id number],C,1 36/85 BP this morning B Ps at home are usually in the 130-145s. Checks BP at home twice a week BP today: 165/101 P rior BP: 145/85 (10/09/2021) His updated medication list for this problem includes: Aspirin 81 Mg Tablet,delayed Release (dr/ec) (Aspirin) ..... Take 1 tablet by mouth every day Valsartan 80 Mg Tablet (Valsartan) ..... Take 1 tablet by mouth twice a day Valsartan 80 Mg Tablet (Valsartan) Hydrochlorothiazide 12.5 Mg Capsule (Hydrochlorothiazide) ..... Take 1 capsule by mouth once a day Jaden Carpenter MD [id number],C, C ONCLUSIONS: 1 . Normal left ventricular systolic function. Normal left ventricular size. Normal left ventricular wall thickness. There is E to A w ave reversal consistent with impaired LV relaxation. Normal E/E` 10.6. Left ventricular ejection fraction is measured at 65 % . 2 . Mild enlargement of right ventricle. Normal right ventricular systolic function. 3. There is mild enlargement of the left atrium. 4 . Mild mitral valve regurgitation. 5 . There is mild tricuspid regurgitation. Estimated peak pulmonary artery systolic pressure is 17.0 mmHg. M ost recent echo from 08/04/21 C ONCLUSIONS: 1 . Normal left ventricular systolic function. Normal left ventricular size. Normal left ventricular wall thickness. Normal left v entricular diastolic function. E/E': 10.3 Left ventricular ejection fraction is measured at 60 %. 2 . Normal right ventricular size. Normal right ventricular systolic function. 3 . There is non-specific thickening of the mitral valve leaflets. Mild mitral valve prolapse involving the posterior mitral valve l eaflet. There is trace physiologic mitral valve regurgitation. 4 . There is trace physiologic tricuspid valve regurgitation. E lectronically Signed By: Escobar Carpenter MD, FACC 2 022-03-08 15:55:00 PRESETTER OPERATOR C C: Jaden Carpenter MD, FACC E lectronically signed by Jaden Carpenter MD on 08/13/2021 at 12:59 AM Jaden Carpenter MD [id number],C,s /p CABG for multi vessel CAD. 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 CONCLUSIONS: 1 . Normal left ventricular systolic function. Normal left ventricular size. Normal left ventricular wall thickness. Normal left v entricular diastolic function. E/E': 10.3 Left ventricular ejection fraction is measured at 60 %. 2 . Normal right ventricular size. Normal right ventricular systolic function. 3 . There is non-specific thickening of the mitral valve leaflets. Mild mitral valve prolapse involving the posterior mitral valve l eaflet. There is trace physiologic mitral valve regurgitation. 4 . There is trace physiologic tricuspid valve regurgitation. E lectronically Signed By: Escobar Carpenter MD, FACC 2021-08-04 15:55:00 PRESETTER OPERATOR C C: Jaden Carpenter MD, FACC Upon review of invasive and noninvasive testing and recent exam the patient is an acceptable candidate for the planned surgical procedure recommend to maintain his blood pressure range of 110 to 140 mmHg and a heart rate of 60-80 B p.m.. It is okay to use IV beta blockers calcium channel blockers nitrates and afterload reducing agents to maintain the aforementioned hemodynamics parameters. Tele monitoring and EKG should be done if the patient has arrhythmia during procedure Jaden Carpenter MD [id number],C,I MPRESSION: 1 . 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 2 . Severe left ventricular systolic dysfunction with left ventricular wall motion abnormality consistent with f indings of the nuclear stress test report. 3 . Elevated left ventricular end-diastolic pressure. 4. Elevated systolic blood pressure. 5 . No evidence of abdominal aortic aneurysm noted. 6 . No significant valvular disease noted. s/p CABG for multi vessel CAD. 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 Jaden Carpenter MD [id number],C,N ormal LVEF C ONCLUSIONS: 1 . Normal left ventricular systolic function. Normal left ventricular size. Normal left ventricular wall thickness. Normal left v entricular diastolic function. E/E': 10.3 Left ventricular ejection fraction is measured at 60 %. 2 . Normal right ventricular size. Normal right ventricular systolic function. 3 . There is non-specific thickening of the mitral valve leaflets. Mild mitral valve prolapse involving the posterior mitral valve l eaflet. There is trace physiologic mitral valve regurgitation. 4 . There is trace physiologic tricuspid valve regurgitation. E lectronically Signed By: Escobar Carpenter MD, [facility] 2 022-03-08 15:55:00 PRESETTER OPERATOR C C: Jaden Carpenter MD, [facility] E lectronically signed by Jaden Carpenter MD on 08/13/2021 at 12:59 AM Jaden Carpenter MD [id number],S,C ONCLUSIONS: 1 . Mild plaque with less than 50% stenosis of the internal carotid arteries bilaterally. 2 . Vertebral flow is antegrade bilaterally. E lectronically signed by Jaden Carpenter MD on 08/20/2021 at 11:17 PM Jaden Carpenter MD [id number],C, C ONCLUSIONS: 1 . Normal left ventricular systolic function. Normal left ventricular size. Normal left ventricular wall thickness. There is E to A w ave reversal consistent with impaired LV relaxation. Normal E/E` 10.6. Left ventricular ejection fraction is measured at 65 % . 2 . Mild enlargement of right ventricle. Normal right ventricular systolic function. 3. There is mild enlargement of the left atrium. 4 . Mild mitral valve regurgitation. 5 . There is mild tricuspid regurgitation. Estimated peak pulmonary artery systolic pressure is 17.0 mmHg. M ost recent echo from 08/04/21 C ONCLUSIONS: 1 . Normal left ventricular systolic function. Normal left ventricular size. Normal left ventricular wall thickness. Normal left v entricular diastolic function. E/E': 10.3 Left ventricular ejection fraction is measured at 60 %. 2 . Normal right ventricular size. Normal right ventricular systolic function. 3 . There is non-specific thickening of the mitral valve leaflets. Mild mitral valve prolapse involving the posterior mitral valve l eaflet. There is trace physiologic mitral valve regurgitation. 4 . There is trace physiologic tricuspid valve regurgitation. E lectronically Signed By: Escobar Carpenter MD, [facility] 2 022-03-08 15:55:00 PRESETTER OPERATOR C C: Jaden Carpenter MD, [facility] E lectronically signed by Jaden Carpenter MD on 08/13/2021 at 12:59 AM Jaden Carpenter MD [id number],C, H is updated medication list for this problem includes: Crestor 20 Mg Tablet (Rosuvastatin) ..... 1 tablet by mouth once a day Jaden Carpenter MD [id number],C, L RAINA to the LAD R adial to OM1 and OM2 V ein to RCA L V aneurism repair No new angina. Jaden Carpenter MD [id number],C,B Ps from home are well controlled. H is updated medication list for this problem includes: Valsartan 80 Mg Tablet (Valsartan) ..... 1 tablet by mouth twice a day Aspirin 81 Mg Tablet,delayed Release (dr/ec) (Aspirin) ..... Take 1 tablet by mouth once a day Hydrochlorothiazide 12.5 Mg Capsule (Hydrochlorothiazide) ..... Take 1 capsule by mouth once a day Jaden Carpenter MD [id number],C,H ome sleep study shows an AHI of 6.5 which is consistent with a diagnosis of mild OLIVIA. During the supine position, t he AHI increased to 24.3. Mean oxygen saturation of 96%, with the lowest being 89%. R ecommendations Jaden Carpenter MD [id number],C,S luisa castanon for bloodwork H is updated medication list for this problem includes: Crestor 20 Mg Tablet (Rosuvastatin) ..... 1 tablet by mouth once a day Jaden Carpenter MD [id number],C,L RAINA to the LAD R adial to OM1 and OM2 V ein to RCA L V aneurism repair No new angina. Jaden Carpenter MD [id number],S,B P seems to be running high. Did not tolerate HCT. Will increase valsartan to bid will check bps at home. Jaden Carpenter MD [id number],S,C ONCLUSIONS: 1 . Normal left ventricular systolic function. Normal left ventricular size. Normal left ventricular wall thickness. There is E to A w ave reversal consistent with impaired LV relaxation. Normal E/E` 10.6. Left ventricular ejection fraction is measured at 65 % . 2 . Mild enlargement of right ventricle. Normal right ventricular systolic function. 3 . There is mild enlargement of the left atrium. 4 . Mild mitral valve regurgitation. 5 . There is mild tricuspid regurgitation. Estimated peak pulmonary artery systolic pressure is 17.0 mmHg. Jaden Carpenter MD [id number],C,Vaccinated wi th moderna Jaden Carpenter MD [id number],S,on viagra as needed Jaden Carpenter MD [id number],S,A dd hctz 12.5 daily H is updated medication list for this problem includes: Crestor 20 Mg Tablet (Rosuvastatin) ..... 1 tablet by mouth once a day Jaden Carpenter MD [id number],S, T he following medications were removed from the medication list: Lasix 20 Mg Tablet (Furosemide) ..... 1 tablet by mouth every morning as needed His updated medication list for this problem includes: Valsartan 80 Mg Tablet (Valsartan) ..... 1 tablet by mouth once a day Orders: E KG ([id number]) Jaden Carpenter MD Cardiology: I MPRESSION: 1 . 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 2 . Severe left ventricular systolic dysfunction with left ventricular wall motion abnormality consistent with f indings of the nuclear stress test report. 3 . Elevated left ventricular end-diastolic pressure. 4 . Elevated systolic blood pressure. 5 . No evidence of abdominal aortic aneurysm noted. 6 . No significant valvular disease noted. s/p CABG for multi vessel CAD. 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 NO NEW SX DOING WELL LVEF WAS NL ON RECENT ECHO AND LDL IS 50 June 17, 2023 s tarted on zetia, check labs & #13;December 16, 2023 N O FUNCTIONAL LIMITATIONS WILL NOT NEED STRESS AT PRESENT WILL DO IN 6MONTHS AND CHECK CAROTIDS AT THAT ALLIE s /p CABG for multi vessel CAD. 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 Chandler Lemus BLACK PULLER Cardiology: C ONCLUSIONS: echo 07/2021 1 . Normal left ventricular systolic function. Normal left ventricular size. Normal left ventricular wall thickness. Normal left v entricular diastolic function. E/E': 10.3 Left ventricular ejection fraction is measured at 60 %. 2 . Normal right ventricular size. Normal right ventricular systolic function. 3 . There is non-specific thickening of the mitral valve leaflets. Mild mitral valve prolapse involving the posterior mitral valve l eaflet. There is trace physiologic mitral valve regurgitation. 4 . There is trace physiologic tricuspid valve regurgitation. E lectronically Signed By: Escobar Carpenter MD, [facility] 2 022-03-08 15:55:00 PRESETTER OPERATOR C C: Jaden Carpenter MD, FACC E lectronically signed by Jaden Carpenter MD on 08/13/2021 at 12:59 AM CONCLUSIONS: Echo 05/19/2022 1 . Septal motion consistent with post-operative state. Normal left ventricular systolic function. Normal left ventricular size. N ormal left ventricular wall thickness. Mitral inflow Doppler demonstrates pseudonormal pattern consistent with diastolic d ysfunction. E/E': 12.5 Left ventricular ejection fraction is measured at 60 %. 2 . Mild enlargement of right ventricle. Normal right ventricular systolic function. 3 . The tricuspid valve is normal in appearance and function. There is mild tricuspid regurgitation. IVC is normal in size with n ormal respiratory response. The RA pressure is estimated at 5.0 mmHg Estimated peak pulmonary artery systolic pressure is 3 6.0 mmHg. CONCLUSIONS: Echo 06/2023 1. Normal left ventricular systolic function. Normal left ventricular size. Normal left ventricular wall thickness. Normal left v entricular diastolic function. E/E': 15.8. Left ventricular ejection fraction is measured at 55 %. 2 . Mild enlargement of right ventricle. Normal right ventricular systolic function. 3 . Trace MR LIND ID. Chandler Lemus KAREN Cardiology: CONCLUSIONS: 1 . Normal left ventricular systolic function. Normal left ventricular size. Normal left ventricular wall thickness. Normal left v entricular diastolic function. E/E': 15.8. Left ventricular ejection fraction is measured at 55 %. 2 . Mild enlargement of right ventricle. Normal right ventricular systolic function. 3 . Trace MR DIOGO ID. Chandler Lemus KAREN Cardiology:This visi t has been a part of the consistent, comprehensive, and ongoing management of the chronic medical condition(s) listed above for the patient. TC 88, TRI 61, HDK 34, LDL 40 (10/2023) His updated medication list for this problem includes: Ezetimibe 10 Mg Tablet (Ezetimibe) ..... Take 1 tablet by mouth once a day Crestor 20 Mg Tablet (Rosuvastatin) ..... Take 1 tablet by mouth once a day Chandler Lemus KAREN Cardiology:This visi t has been a part of the consistent, comprehensive, and ongoing management of the chronic medical condition(s) listed above for the patient. Carotid duplex 06/2023 CONCLUSIONS: 1 . Mild plaque with less than 50% stenosis of the internal carotid arteries bilaterally. 2 . Vertebral flow is antegrade bilaterally. No angina. Chandler Alanisrolan JONES Cardiology:This visi t has been a part of the consistent, comprehensive, and ongoing management of the chronic medical condition(s) listed above for the patient. I MPROVED SOB SINCE REDUCED WORKING IN [employer] AND NOW RETIRED E cho 06/2023 CONCLUSIONS: 1 . Normal left ventricular systolic function. Normal left ventricular size. Normal left ventricular wall thickness. Normal left v entricular diastolic function. E/E': 15.8. Left ventricular ejection fraction is measured at 55 %. 2 . Mild enlargement of right ventricle. Normal right ventricular systolic function. 3 . Trace MR LIND ID. Chandler Lemus KAREN Cardiology: B P today: 130/84 P rior BP: 134/64 (06/17/2023) His updated medication list for this problem includes: Aspirin 81 Mg Tablet,delayed Release (dr/ec) (Aspirin) ..... Take 1 tablet by mouth every day Valsartan 80 Mg Tablet (Valsartan) ..... Take 1 tablet by mouth twice a day Chandler Lemus KAREN Cardiology:check ech o Jaden Carpenter MD Cardiology:check carotid US Caitlyn Carpenter MD Cardiology: H is updated medication list for this problem includes: Crestor 20 Mg Tablet (Rosuvastatin) ..... 1 tablet by mouth once a day Jaden Carpenter MD Cardiology: H is updated medication list for this problem includes: Aspirin 81 Mg Tablet,delayed Release (dr/ec) (Aspirin) ..... Take 1 tablet by mouth every day Valsartan 80 Mg Tablet (Valsartan) ..... Take 1 tablet by mouth twice a day Jaden Carpenter MD Cardiology: I MPRESSION: 1 . 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 2 . Severe left ventricular systolic dysfunction with left ventricular wall motion abnormality consistent with f indings of the nuclear stress test report. 3 . Elevated left ventricular end-diastolic pressure. 4 . Elevated systolic blood pressure. 5 . No evidence of abdominal aortic aneurysm noted. 6 . No significant valvular disease noted. s/p CABG for multi vessel CAD. 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 NO NEW SX DOING WELL LVEF WAS NL ON RECENT ECHO AND LDL IS 50 June 17, 2023 s tarted on zetia, check labs Jaden Carpenter MD Cardiology:check ech o Jaden Carpenter MD Cardiology: I MPRESSION: 1 . 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 2 . Severe left ventricular systolic dysfunction with left ventricular wall motion abnormality consistent with f indings of the nuclear stress test report. 3 . Elevated left ventricular end-diastolic pressure. 4 . Elevated systolic blood pressure. 5 . No evidence of abdominal aortic aneurysm noted. 6 . No significant valvular disease noted. s/p CABG for multi vessel CAD. 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 NO NEW SX DOING WELL LVEF WAS NL ON RECENT ECHO AND LDL IS 50 Chandler Lemus KAREN Cardiology: H is updated medication list for this problem includes: Crestor 20 Mg Tablet (Rosuvastatin) ..... 1 tablet by mouth once a day Chandler Alanisrolan JONES Cardiology: P er patient BP at home in the 130s B P today: 146/78 P rior BP: 165/101 (04/09/2022) The following medications were removed from the medication list: Hydrochlorothiazide 12.5 Mg Capsule (Hydrochlorothiazide) ..... Take 1 capsule by mouth once a day Valsartan 80 Mg Tablet (Valsartan) His updated medication list for this problem includes: Aspirin 81 Mg Tablet,delayed Release (dr/ec) (Aspirin) ..... Take 1 tablet by mouth every day Valsartan 80 Mg Tablet (Valsartan) ..... Take 1 tablet by mouth twice a day Valsartan 80 Mg Tablet (Valsartan) Hydrochlorothiazide 12.5 Mg Capsule (Hydrochlorothiazide) ..... Take 1 capsule by mouth once a day Chandler Lemus KAREN Cardiology: C ONCLUSIONS: echo 07/2021 1 . Normal left ventricular systolic function. Normal left ventricular size. Normal left ventricular wall thickness. Normal left v entricular diastolic function. E/E': 10.3 Left ventricular ejection fraction is measured at 60 %. 2 . Normal right ventricular size. Normal right ventricular systolic function. 3 . There is non-specific thickening of the mitral valve leaflets. Mild mitral valve prolapse involving the posterior mitral valve l eaflet. There is trace physiologic mitral valve regurgitation. 4 . There is trace physiologic tricuspid valve regurgitation. E lectronically Signed By: Escobar Carpenter MD, FACC 2 022-03-08 15:55:00 PRESETTER OPERATOR C C: Jaden Carpenter MD, FACC E lectronically signed by Jaden Carpenter MD on 08/13/2021 at 12:59 AM CONCLUSIONS: Echo 05/19/2022 1 . Septal motion consistent with post-operative state. Normal left ventricular systolic function. Normal left ventricular size. N ormal left ventricular wall thickness. Mitral inflow Doppler demonstrates pseudonormal pattern consistent with diastolic d ysfunction. E/E': 12.5 Left ventricular ejection fraction is measured at 60 %. 2 . Mild enlargement of right ventricle. Normal right ventricular systolic function. 3 . The tricuspid valve is normal in appearance and function. There is mild tricuspid regurgitation. IVC is normal in size with n ormal respiratory response. The RA pressure is estimated at 5.0 mmHg Estimated peak pulmonary artery systolic pressure is 3 6.0 mmHg. Chandler Lemus NP Cardiology: C ONCLUSIONS: CAROTID US 07/2021 1 . Mild plaque with less than 50% stenosis of the internal carotid arteries bilaterally. 2 . Vertebral flow is antegrade bilaterally. No chest pain. Will continue current medication. Chandler Lemus NP Cardiology: C ONCLUSIONS: 1 . Mild plaque with less than 50% stenosis of the internal carotid arteries bilaterally. 2 . Vertebral flow is antegrade bilaterally. E lectronically signed by Jaden Carpenter MD on 08/20/2021 at 11:17 PM Jaden Carpenter MD Cardiology: H is updated medication list for this problem includes: Crestor 20 Mg Oral Tablet (Rosuvastatin calcium) ..... One tab. daily Jaden Carpenter MD Cardiology: H ome sleep study shows an AHI of 6.5 which is consistent with a diagnosis of mild OLIVIA. During the supine position, t he AHI increased to 24.3. Mean oxygen saturation of 96%, with the lowest being 89%. Jaden Carpenter MD Cardiology: H is updated medication list for this problem includes: Crestor 20 Mg Tablet (Rosuvastatin) ..... 1 tablet by mouth once a day Jaden Carpenter MD Cardiology:136/85 BP this morning B Ps at home are usually in the 130-145s. Checks BP at home twice a week BP today: 165/101 P rior BP: 145/85 (10/09/2021) His updated medication list for this problem includes: Aspirin 81 Mg Tablet,delayed Release (dr/ec) (Aspirin) ..... Take 1 tablet by mouth every day Valsartan 80 Mg Tablet (Valsartan) ..... Take 1 tablet by mouth twice a day Valsartan 80 Mg Tablet (Valsartan) Hydrochlorothiazide 12.5 Mg Capsule (Hydrochlorothiazide) ..... Take 1 capsule by mouth once a day Jaden Carpenter MD Cardiology: C ONCLUSIONS: 1 . Normal left ventricular systolic function. Normal left ventricular size. Normal left ventricular wall thickness. There is E to A w ave reversal consistent with impaired LV relaxation. Normal E/E` 10.6. Left ventricular ejection fraction is measured at 65 % . 2 . Mild enlargement of right ventricle. Normal right ventricular systolic function. 3 . There is mild enlargement of the left atrium. 4 . Mild mitral valve regurgitation. 5 . There is mild tricuspid regurgitation. Estimated peak pulmonary artery systolic pressure is 17.0 mmHg. & #13;Most recent echo from 08/04/21 C ONCLUSIONS: 1 . Normal left ventricular systolic function. Normal left ventricular size. Normal left ventricular wall thickness. Normal left v entricular diastolic function. E/E': 10.3 Left ventricular ejection fraction is measured at 60 %. 2 . Normal right ventricular size. Normal right ventricular systolic function. 3 . There is non-specific thickening of the mitral valve leaflets. Mild mitral valve prolapse involving the posterior mitral valve l eaflet. There is trace physiologic mitral valve regurgitation. 4 . There is trace physiologic tricuspid valve regurgitation. E lectronically Signed By: Escobar Carpenter MD, FACC 2 022-03-08 15:55:00 PRESETTER OPERATOR C C: Jaden Carpenter MD, FACC E lectronically signed by Jaden Carpenter MD on 08/13/2021 at 12:59 AM Jaden Carpenter MD Cardiology:s/p CABG for multi vessel CAD. 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 CONCLUSIONS: 1 . Normal left ventricular systolic function. Normal left ventricular size. Normal left ventricular wall thickness. Normal left v entricular diastolic function. E/E': 10.3 Left ventricular ejection fraction is measured at 60 %. 2 . Normal right ventricular size. Normal right ventricular systolic function. 3 . There is non-specific thickening of the mitral valve leaflets. Mild mitral valve prolapse involving the posterior mitral valve leaflet. There is trace physiologic mitral valve regurgitation. 4 . There is trace physiologic tricuspid valve regurgitation. E lectronically Signed By: Escobar Carpenter MD, JANE 15:55:00 PRESETTER OPERATOR C C: Jaden Carpenter MD, FACDaria Upon review of invasive and noninvasive testing and recent exam the patient is an acceptable candidate for the planned surgical procedure recommend to maintain his blood pressure range of 110 to 140 mmHg and a heart rate of 60-80 B p.m.. It is okay to use IV beta blockers calcium channel blockers nitrates and afterload reducing agents to maintain the aforementioned hemodynamics parameters. Tele monitoring and EKG should be done if the patient has arrhythmia during procedure Jaden Carpenter MD Cardiology:IMPRESSIO N: 1 . 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 2 . Severe left ventricular systolic dysfunction with left ventricular wall motion abnormality consistent with f indings of the nuclear stress test report. 3 . Elevated left ventricular end-diastolic pressure. 4 . Elevated systolic blood pressure. 5 . No evidence of abdominal aortic aneurysm noted. 6 . No significant valvular disease noted. s/p CABG for multi vessel CAD. 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 Jaden Carpenter MD Cardiology:Normal LV EF C ONCLUSIONS: 1 . Normal left ventricular systolic function. Normal left ventricular size. Normal left ventricular wall thickness. Normal left v entricular diastolic function. E/E': 10.3 Left ventricular ejection fraction is measured at 60 %. 2 . Normal right ventricular size. Normal right ventricular systolic function. 3 . There is non-specific thickening of the mitral valve leaflets. Mild mitral valve prolapse involving the posterior mitral valve l eaflet. There is trace physiologic mitral valve regurgitation. 4 . There is trace physiologic tricuspid valve regurgitation. E lectronically Signed By: Escobar Carpenter MD, JANE 15:55:00 PRESETTER OPERATOR C C: Jaden Carpenter MD, FACC E lectronically signed by Jaden Carpenter MD on 08/13/2021 at 12:59 AM Jaden Carpenter MD Cardiology:CONCLUSIO NS: 1 . Mild plaque with less than 50% stenosis of the internal carotid arteries bilaterally. 2 . Vertebral flow is antegrade bilaterally. E lectronically signed by Jaden Carpenter MD on 08/20/2021 at 11:17 PM Jaden Carpenter MD Cardiology: C ONCLUSIONS: 1 . Normal left ventricular systolic function. Normal left ventricular size. Normal left ventricular wall thickness. There is E to A w ave reversal consistent with impaired LV relaxation. Normal E/E` 10.6. Left ventricular ejection fraction is measured at 65 % . 2 . Mild enlargement of right ventricle. Normal right ventricular systolic function. 3 . There is mild enlargement of the left atrium. 4 . Mild mitral valve regurgitation. 5 . There is mild tricuspid regurgitation. Estimated peak pulmonary artery systolic pressure is 17.0 mmHg. & #13;Most recent echo from 08/04/21 C ONCLUSIONS: 1 . Normal left ventricular systolic function. Normal left ventricular size. Normal left ventricular wall thickness. Normal left v entricular diastolic function. E/E': 10.3 Left ventricular ejection fraction is measured at 60 %. 2 . Normal right ventricular size. Normal right ventricular systolic function. 3 . There is non-specific thickening of the mitral valve leaflets. Mild mitral valve prolapse involving the posterior mitral valve l eaflet. There is trace physiologic mitral valve regurgitation. 4 . There is trace physiologic tricuspid valve regurgitation. E lectronically Signed By: Escobar Carpenter MD, [facility] 2 022--08 15:55:00 PRESETTER OPERATOR C C: Jaden Carpenter MD, [facility] E lectronically signed by Jaden Carpenter MD on 08/13/2021 at 12:59 AM Jaden Carpenter MD Cardiology: H is updated medication list for this problem includes: Crestor 20 Mg Tablet (Rosuvastatin) ..... 1 tablet by mouth once a day Jaden Carpenter MD Cardiology: L RAINA to the LAD R adial to OM1 and OM2 V ein to RCA L V aneurism repair No new angina. Jaden Carpenter MD Cardiology:BPs from home are well controlled. H is updated medication list for this problem includes: Valsartan 80 Mg Tablet (Valsartan) ..... 1 tablet by mouth twice a day Aspirin 81 Mg Tablet,delayed Release (dr/ec) (Aspirin) ..... Take 1 tablet by mouth once a day Hydrochlorothiazide 12.5 Mg Capsule (Hydrochlorothiazide) ..... Take 1 capsule by mouth once a day Jaden Carpenter MD Cardiology:Home slee p study shows an AHI of 6.5 which is consistent with a diagnosis of mild OLIVIA. During the supine position, t he AHI increased to 24.3. Mean oxygen saturation of 96%, with the lowest being 89%. R ecommendations Jaden Carpenter MD Cardiology:Sees cristina cody for bloodwork H is updated medication list for this problem includes: Crestor 20 Mg Tablet (Rosuvastatin) ..... 1 tablet by mouth once a day Jaden Carpenter MD Cardiology:VALENTINO to t he LAD R adial to OM1 and OM2 V ein to RCA L V aneurism repair No new angina. Jaden Carpenter MD Cardiology:BP seems to be running high. Did not tolerate HCT. Will increase valsartan to bid will check bps at home. Jaden Carpenter MD Cardiology:CONCLUSIO NS: 1 . Normal left ventricular systolic function. Normal left ventricular size. Normal left ventricular wall thickness. There is E to A w ave reversal consistent with impaired LV relaxation. Normal E/E` 10.6. Left ventricular ejection fraction is measured at 65 % . 2 . Mild enlargement of right ventricle. Normal right ventricular systolic function. 3 . There is mild enlargement of the left atrium. 4 . Mild mitral valve regurgitation. 5 . There is mild tricuspid regurgitation. Estimated peak pulmonary artery systolic pressure is 17.0 mmHg. Jaden Carpenter MD Cardiology:Vaccinated with moder na Jaden Carpenter MD Cardiology:on viagra as needed S sharita Carpenter MD Cardiology:Add hctz 12.5 daily H is updated medication list for this problem includes: Crestor 20 Mg Tablet (Rosuvastatin) ..... 1 tablet by mouth once a day Jaden Carpenter MD Cardiology: T he following medications were removed from the medication list: Lasix 20 Mg Tablet (Furosemide) ..... 1 tablet by mouth every morning as needed His updated medication list for this problem includes: Valsartan 80 Mg Tablet (Valsartan) ..... 1 tablet by mouth once a day Orders: E KG ([id number]) Jaden Carpenter MD Cardiology Jaden Carpenter MD Cardiology Jaden Carpenter MD Cardiology: No new angina. Jaden Carpenter MD Cardiology: m od mr and mild tr check echo Jaden Carpenter MD :[phone] Steven Stover MD Cardiology:mod mr and mild tr Angulo presley Stover MD Cardiology: T he following medications were removed from the medication list: Metoprolol Tartrate 25 Mg Oral Tablet (Metoprolol tartrate) ..... One tablet twice a day His updated medication list for this problem includes: Lasix 20 Mg Oral Tablet (Furosemide) ..... One tab daily, in the morning Valsartan 80 Mg Oral Tablet (Valsartan) ..... One tab by mouth once daily Aspir-low 81 Mg Oral Tablet Delayed Release (Aspirin) BP today: 122/82 P rior BP: 152/94 (08/01/2019) Steven Stover MD Cardiology: H is updated medication list for this problem includes: Crestor 20 Mg Oral Tablet (Rosuvastatin calcium) ..... One tab. daily Steven Stover MD Cardiology:does not want rx So Stover MD Cardiology Steven Stover MD Cardiology Steven Stover MD Cardiology Steven Stover MD Cardiology Steven Stover MD Cardiology Steven Stover MD Cardiology:nml a1c Steven Stover MD TeleHealth:Home slee p study shows an AHI of 6.5 which is consistent with a diagnosis of mild OLIVIA. During the supine position, t he AHI increased to 24.3. Mean oxygen saturation of 96%, with the lowest being 89%. With covid, I dont want him going around and getting infected post operatively. Do not need to pursue sleep study at present. Jaden Carpenter MD TeleHealth:Started h im on Lasix 20 mg. He is already on Diovan and low dose beta shala. 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 Jaden Carpenter MD TeleHealth: H is updated medication list for this problem includes: Rosuvastatin Calcium 10 Mg Oral Tablet (Rosuvastatin calcium) Jaden Carpenter MD TeleHealth:Multi ves suzanne CABG for multi vessel CAD. Currently in NSR, sinus jay @ 52 on EKG. Doing well post surgery, off of amiodarone. August 31, 2019 n o palpitations doing well worried about covid in the setting of the post op and safety in returing to work Jaden Carpenter MD TeleHealth:Home slee p study shows an AHI of 6.5 which is consistent with a diagnosis of mild OLIVIA. During the supine position, t he AHI increased to 24.3. Mean oxygen saturation of 96%, with the lowest being 89%. With covid, I dont want him going around and getting infected post operatively. Do not need to pursue sleep study at present. 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 Fredy Peterson TeleHealth:Started h im on Lasix 20 mg. He is already on Diovan and low dose beta shala. Fredy Peterson TeleHealth Fredy Peterson TeleHealth:Multi ves suzanne CABG for multi vessel CAD. Currently in NSR, sinus jay @ 52 on EKG. Doing well post surgery, off of amiodarone. Fredy Peterson Cardiology:Multivessel CAD, led to CABG. Jaden Carpenter MD Cardiology:Multi ves suzanne CABG for multi vessel CAD. Currently in NSR, sinus jay @ 52 on EKG. Jaden Carpenter MD Cardiology Jaden Carpenter MD Date Name HEMOGLOBIN A1c Lipoprotein (a) LIPID PANEL COMPREHENSIVE METABO LIC PANEL, W/EGFR Carotid Duplex Bilat eral Complete Echo Complete Echo Carotid Duplex Bilat eral Complete Echo LIPID PANEL HEMOGLOBIN A1c PROBNP, N TERMINAL COMPREHENSIVE METABO LIC PANEL, W/EGFR Complete Echo CBC (INCLUDES DIFF/P LT) HEMOGLOBIN A1c PROBNP, N TERMINAL LIPID PANEL BASIC METABOLIC PANE L W/EGFR Covid Antibody Igg PROBNP, N TERMINAL Complete Echo Sleep Study Home Complete Echo HISTORY OF PROCEDURES Procedure Date Procedure Name Provider Procedure Notes S tatus EKG Jaden Carpenter MD compl eted EKG Jaden Carpenter MD compl eted EKG Jaden Carpenter MD compl eted EKG Jaden Carpenter MD compl eted EKG Jaden Carpenter MD compl eted EKG Jaden Carpenter MD compl eted EKG Jaden Carpenter MD compl eted EKG aJden Carpenter MD compl eted Landy Zapata MD completed
--- OUTSIDE RECORDS SUMMARY | 2024-10-05 07:36 | XMS_ITS | Data Portability ---
Author Organization [place] [facility] [place], Main Office Address [address] [place] [id number] Care Team Providers Care Social Work Therapist Name Role Phone JOVAN RILEY Primary Care Provider [phone] JOVAN RILEY Referring Provider [phone] Assessment Encounter Date Assessment Date Assessment LastModified by Organization Details LastModified Time 08/02/2022 08/02/2022 Blood work ordered continue current therapy secondary preventive measures for heart disease discussed in follow-up in 6 months [id number] Not available 08/03/2022 21:46:24 12/20/2022 12/20/2022 Doing well continue current therapy blood work has been ordered follow-up in 6 months [id number] Not available 12/25/2022 18:27:03 06/13/2023 06/13/2023 Continue current therapy blood work reviewed will try to drive LDL down even further with Zetia has some aches with rosuvastatin but they are not severe so I fear going up on to 40 mg a day that will just cause some myalgias Not available 06/20/2023 20:54:20 Plan of Treatment Reminders Order Date Submit Date Provider Last Modified By Organization Details Last Modified Time Details Appointments None recorded. Lab CMP, serum or plasma - Send copy of results to Cardiology Dr Carpenter. 2022 023 [facility] (Lab), [address] [place], [address], 12:25:54 CBC w/ auto diff 2022 023 [facility] (Lab), [address] [place], [address], 3 11:41:22 lipid panel, serum 2022 023 GENEVA [facility] (Lab), [address] [place], [address], 3 12:25:58 Referral None recorded. Procedures None recorded. Surgeries None recorded. Imaging None recorded. Medication Orders Zetia 10 mg tablet 2023 024 [id number] [facility] #[id number], [address], [place], [address], 4 20:53:29 Patient TargetsNo targets recorded. Patient InstructionsNo instructions recorded. Reason for Referral None Reported. Results Created Date Observation Date Name Description Value Unit Range Abnormal Flag Note LastModifiedBy Organization Detail LastModifiedTime 10/09/1910/08/2022 CBC/C OMPLE TE BLD COUNT W/DIF F white blood cells 6.7 x10'3 /uL 4.2-10 .8 Not Available [facility] (Lab) [address] [place], [address], 10/08/2022 11:41:22 10/09/19 23 10/08/2022 CBC/C OMPLE TE BLD COUNT W/DIF F red blood cells 5.48 x10'6 /uL 4.10-5 .80 Not Available [facility] (Lab) [address] [place], [address], 10/08/2022 11:41:22 10/09/19 23 10/08/2022 CBC/C OMPLE TE BLD COUNT W/DIF F hemoglobin 15.9 g/dL 13.2-1 7.0 Not Available [facility] (Lab) [address] [facility] [place], [address], 10/08/2022 11:41:22 10/09/19 23 10/08/2022 CBC/C OMPLE TE BLD COUNT W/DIF F hematocrit 48.4 % 39.3-5 0.0 Not Available [facility] (Lab) [address] [place], [address], 10/08/2022 11:41:22 10/09/19 23 10/08/2022 CBC/C OMPLE TE BLD COUNT W/DIF F mean red cell volume 88.3 fL 80.0-9 7.0 Not Available [facility] (Lab) [address] [place], [address], 10/08/2022 11:41:22 10/09/19 23 10/08/2022 CBC/C OMPLE TE BLD COUNT W/DIF F mean red cell hemoglobin 29.0 pg 27.0-3 3.0 Not Available [facility] (Lab) [address] [place], [address], 10/08/2022 11:41:22 10/09/19 23 10/08/2022 CBC/C OMPLE TE BLD COUNT W/DIF F mean RBC HGB concentratio n 32.9 g/dL 31.0-3 6.0 Not Available [facility] (Lab) [address] [place], [address], 10/08/2022 11:41:22 10/09/19 23 10/08/2022 CBC/C OMPLE TE BLD COUNT W/DIF F red cell distribution width 12.9 % 11.8-1 5.5 Not Available [facility] (Lab) [address] [place], [address], 10/08/2022 11:41:22 10/09/19 23 10/08/2022 CBC/C OMPLE TE BLD COUNT W/DIF F platelets 266 x10'3 /uL 150-40 0 Not Available [facility] (Lab) [address] [place], [address], 10/08/2022 11:41:22 10/09/19 23 10/08/2022 CBC/C OMPLE TE BLD COUNT W/DIF F mean platelet volume 9.5 fL 9.0-12 .4 Not Available [facility] (Lab) [address] [place], [address], 10/08/2022 11:41:22 10/09/19 23 10/08/2022 CBC/C OMPLE TE BLD COUNT W/DIF F neutrophils 49.6 % 39.0-7 2.0 Not Available [facility] (Lab) [address] [place], [address], 10/08/2022 11:41:22 10/09/1910/08/2022 CBC/C OMPLE TE BLD COUNT W/DIF F lymphocytes 34.7 % 16.0-4 7.0 Not Available [facility] (Lab) [address] [place], [address], 10/08/2022 11:41:22 10/09/1910/08/2022 CBC/C OMPLE TE BLD COUNT W/DIF F monocytes 9.9 % 5.0-12 .0 Not Available [facility] (Lab) [address] [place], [address], 10/08/2022 11:41:22 10/09/1910/08/2022 CBC/C OMPLE TE BLD COUNT W/DIF F eosinophils 4.5 % 1.0-7. 0 Not Available [facility] (Lab) [address] [place], [address], 10/08/2022 11:41:22 10/09/1910/08/2022 CBC/C OMPLE TE BLD COUNT W/DIF F basophils 0.9 % 0.0-2. 0 Not Available [facility] (Lab) [address] [place], [address], 10/08/2022 11:41:22 05/12/20 23 10/08/2022 CBC/C OMPLE TE BLD COUNT W/DIF F immature granulocytes 0.4 % 0.00-0 .50 Not Available [facility] (Lab) [address] [place], [address], 10/08/2022 11:41:22 10/09/19 23 10/08/2022 CBC/C OMPLE TE BLD COUNT W/DIF F neutrophils, absolute count 3.32 x10'3 /uL 1.5-8. 0 Not Available [facility] (Lab) [address] [place], [address], 10/08/2022 11:41:22 10/09/19 23 10/08/2022 CBC/C OMPLE TE BLD COUNT W/DIF F lymphocytes, absolute count 2.32 x10'3 /uL 1.07-3 .43 Not Available [facility] (Lab) [address] [place], [address], 10/08/2022 11:41:22 10/09/19 23 10/08/2022 CBC/C OMPLE TE BLD COUNT W/DIF F monocytes, absolute count 0.66 x10'3 /uL 0.29-0 .99 Not Available [facility] (Lab) [address] [place], [address], 10/08/2022 11:41:22 10/09/19 23 10/08/2022 CBC/C OMPLE TE BLD COUNT W/DIF F eosinophils, absolute count 0.30 x10'3 /uL 0.02-0 .53 Not Available [facility] (Lab) [address] [place], [address], 10/08/2022 11:41:22 10/09/19 23 10/08/2022 CBC/C OMPLE TE BLD COUNT W/DIF F basophils, absolute count 0.06 x10'3 /uL 0.01-0 .08 Not Available [facility] (Lab) [address] [place], [address], 10/08/2022 11:41:22 10/09/19 23 10/08/2022 CBC/C OMPLE TE BLD COUNT W/DIF F immature granulocytes ,absolute 0.03 x10'3 /uL 0.00-0 .05 Not Available [facility] (Lab) [address] [place], [address], 10/08/2022 11:41:22 10/09/19 23 10/08/2022 CBC/C OMPLE TE BLD COUNT W/DIF F nucleated red blood cells 0.0 % -0 Not Available [facility] (Lab) [address] [place], [address], 10/08/2022 11:41:22 10/09/19 23 10/08/2022 CBC/C OMPLE TE BLD COUNT W/DIF F NRBC# 0.00 x10'3 /uL Not Available [facility] (Lab) [address] [place], [address], 10/08/2022 11:41:22 10/09/19 23 10/08/2022 COMPR EHENS BERNARDA METAB OLIC PANEL sodium 135 mmol/ L 137-14 5 low Not Available [facility] (Lab) [address] [place], [address], 10/08/2022 12:25:54 10/09/1910/08/2022 COMPR EHENS BERNARDA METAB OLIC PANEL potassium 4.1 mmol/ L 3.5-5. 1 Not Available [facility] (Lab) [address] [place], [address], 10/08/2022 12:25:54 10/09/19 23 10/08/2022 COMPR EHENS BERNARDA METAB OLIC PANEL chloride 104 mmol/ L 98-107 Not Available [facility] (Lab) [address] [place], [address], 10/08/2022 12:25:54 10/09/19 23 10/08/2022 COMPR EHENS BERNARDA METAB OLIC PANEL carbon dioxide 23 mmol/ L 22-30 Not Available [facility] (Lab) [address] [place], [address], 10/08/2022 12:25:54 10/09/19 23 10/08/2022 COMPR EHENS BERNARDA METAB OLIC PANEL anion gap 12.1 mmol/ L 14-22 low Not Available [facility] (Lab) [address] [place], [address], 10/08/2022 12:25:54 10/09/19 23 10/08/2022 COMPR EHENS BERNARDA METAB OLIC PANEL glucose 100 mg/dL 70-99 high Not Available [facility] (Lab) [address] [place], [address], 10/08/2022 12:25:54 10/09/19 23 10/08/2022 COMPR EHENS BERNARDA METAB OLIC PANEL BUN 15 mg/dL 8-19 Not Available [facility] (Lab) [address] [place], [address], 10/08/2022 12:25:54 10/09/19 23 10/08/2022 COMPR EHENS BERNARDA METAB OLIC PANEL creatinine 0.79 mg/dL 0.66-1 .25 Not Available [facility] (Lab) [address] [place], [address], 10/08/2022 12:25:54 10/09/19 23 10/08/2022 COMPR EHENS BERNARDA METAB OLIC PANEL GFR >60 Refer ence Range : [place] ge GFR Healt hy Adult : >60 mL/mi n/1.7 3 m2 Chron ic Kidne y Disea se: 15-60 mL/mi n/1.7 3 m2 Kidne y Failu re: <15/m L/min /1.73 m2 www.n iddk. nih.g ov The MDRD study equat ion has not been valid ated in child imtiaz <18 years of age; pregn ant women ; the elder ly >85 years of age; or in some racia l or ethni c subgr oups, such as Hispa nics. Outsi de the valid ated mihai eters , estim ated GFR is less accur ate, requi ring clini brent judgm ent on a case- by-ca se basis . Clini brent inter preta tion for other races and ages must be made by the clini florentino. The MDRD study equat ion has not been valid ated for the evalu ation of serum creat inine relat ed to nutri elenita l statu s or medic ation usage . For perso ns <18 years of age, a pedia tric GFR calcu lator is avail able on the [facility] websi te: https :[email or web address] [email or web address] [place].o hua/pr ofess ional s/kdo qi/gf r_cal culat or Not Available [facility] (Lab) [address] [place], [address], 10/08/2022 12:25:54 10/09/19 23 10/08/2022 COMPR EHENS BERNARDA METAB OLIC PANEL alkaline phosphatase 93 U/L 38-126 Not Available [facility] (Lab) [address] [place], [address], 10/08/2022 12:25:54 10/09/19 23 10/08/2022 COMPR EHENS BERNARDA METAB OLIC PANEL alanine aminotransfe rase 24 U/L 0-50 Not Available [facility] (Lab) [address] [place], [address], 10/08/2022 12:25:54 10/09/19 23 10/08/2022 COMPR EHENS BERNARDA METAB OLIC PANEL aspartate aminotransfe rase 34 U/L 15-46 Not Available [facility] (Lab) [address] [place], [address], 10/08/2022 12:25:54 10/09/19 23 10/08/2022 COMPR EHENS BERNARDA METAB OLIC PANEL bilirubin, total 0.40 mg/dL 0.20-1 .30 Not Available [facility] (Lab) [address] [place], [address], 10/08/2022 12:25:54 10/09/19 23 10/08/2022 COMPR EHENS BERNARDA METAB OLIC PANEL calcium 8.4 mg/dL 8.4-10 .2 Not Available [facility] (Lab) [address] [place], [address], 10/08/2022 12:25:54 10/09/19 23 10/08/2022 COMPR EHENS BERNARDA METAB OLIC PANEL total protein 6.4 g/dL 6.3-8. 2 Not Available [facility] (Lab) [address] [place], [address], 10/08/2022 12:25:54 10/09/19 23 10/08/2022 COMPR EHENS BERNARDA METAB OLIC PANEL albumin 3.5 g/dL 3.4-5. 0 Not Available [facility] (Lab) [address] [place], [address], 10/08/2022 12:25:54 10/09/19 23 10/08/2022 COMPR EHENS BERNARDA METAB OLIC PANEL globulin 2.9 g/dL 2.6-4. 2 Not Available [facility] (Lab) [address] [place], [address], 10/08/2022 12:25:54 10/09/19 23 10/08/2022 COMPR EHENS BERNARDA METAB OLIC PANEL A/G ratio 1.2 ratio 1.0-2. 0 Not Available [facility] (Lab) [address] [place], [address], 10/08/2022 12:25:54 10/09/19 23 10/08/2022 LIPID PANEL cholesterol 121 mg/dL 140-19 9 low [facility] NSUS RECOM MENDA TION FOR MICHAEL STERO L: ADULT CHILD LOW RISK: <200 <170 BORDE RLINE : <200- 239 ----- HIGH RISK: >240 >200 Not Available [facility] (Lab) [address] [place], [address], 10/08/2022 12:25:58 10/09/19 23 10/08/2022 LIPID PANEL triglyceride s 182 mg/dL 0-150 high [facility] NSUS REPOR T RECOM MENDA TION FOR TRIGL YCERI RENEE: ADULT CHILD LOW RISK: <150 ----- BODER LINE: 150-1 99 ----- HIGH RISK: >200 ----- Not Available [facility] (Lab) [address] [place], [address], 10/08/2022 12:25:58 10/09/19 23 10/08/2022 LIPID PANEL HDL cholesterol 35 mg/dL 40- low Not Available [facility] (Lab) [address] [place], [address], 10/08/2022 12:25:58 10/09/19 23 10/08/2022 LIPID PANEL LDL cholesterol, calculated 50 mg/dL 0-130 [facility] NSUS REPOR T RECOM MENDA TIONS FOR LDL: ADULT CHILD LOW RISK <130 <110 (OPTI MAL LDL) <100 ----- BORDE RLINE : 130-1 59 ----- HIGH RISK: >160 >130 A TRIGL YCERI DE RESUL T >400 INVAL IDATE S THE CALCU LATIO N FOR LDL FRACT IONAT ION - THE LDL RESUL T WILL NOT BE REPOR YASIR. Not Available [facility] (Lab) [address] [place], [address], 10/08/2022 12:25:58 05/20/20 23 05/20/2023 CBC/C OMPLE TE BLD COUNT W/DIF F white blood cells 5.5 x10'3 /uL 4.2-10 .8 Not Available [facility] (Lab) [address] [place], [address], 05/20/2023 15:08:09 05/20/20 23 05/20/2023 CBC/C OMPLE TE BLD COUNT W/DIF F red blood cells 5.68 x10'6 /uL 4.10-5 .80 Not Available [facility] (Lab) [address] [place], [address], 05/20/2023 15:08:09 05/20/20 23 05/20/2023 CBC/C OMPLE TE BLD COUNT W/DIF F hemoglobin 17.0 g/dL 13.2-1 7.0 Not Available [facility] (Lab) [address] [place], [address], 05/20/2023 15:08:09 05/20/20 23 05/20/2023 CBC/C OMPLE TE BLD COUNT W/DIF F hematocrit 51.0 % 39.3-5 0.0 high Not Available [facility] (Lab) [address] [place], [address], 05/20/2023 15:08:09 05/20/20 23 05/20/2023 CBC/C OMPLE TE BLD COUNT W/DIF F mean red cell volume 89.8 fL 80.0-9 7.0 Not Available [facility] (Lab) [address] [place], [address], 05/20/2023 15:08:09 05/20/20 23 05/20/2023 CBC/C OMPLE TE BLD COUNT W/DIF F mean red cell hemoglobin 29.9 pg 27.0-3 3.0 Not Available [facility] (Lab) [address] [place], [address], 05/20/2023 15:08:09 05/20/20 23 05/20/2023 CBC/C OMPLE TE BLD COUNT W/DIF F mean RBC HGB concentratio n 33.3 g/dL 31.0-3 6.0 Not Available [facility] (Lab) [address] [place], [address], 05/20/2023 15:08:09 05/20/20 23 05/20/2023 CBC/C OMPLE TE BLD COUNT W/DIF F red cell distribution width 13.0 % 11.8-1 5.5 Not Available [facility] (Lab) [address] [place], [address], 05/20/2023 15:08:09 05/20/20 23 05/20/2023 CBC/C OMPLE TE BLD COUNT W/DIF F platelets 269 x10'3 /uL 150-40 0 Not Available [facility] (Lab) [address] [place], [address], 05/20/2023 15:08:09 05/20/20 23 05/20/2023 CBC/C OMPLE TE BLD COUNT W/DIF F mean platelet volume 9.3 fL 9.0-12 .4 Not Available [facility] (Lab) [address] [place], [address], 05/20/2023 15:08:09 05/20/20 23 05/20/2023 CBC/C OMPLE TE BLD COUNT W/DIF F neutrophils 52.0 % 39.0-7 2.0 Not Available [facility] (Lab) [address] [place], [address], 05/20/2023 15:08:09 05/20/20 23 05/20/2023 CBC/C OMPLE TE BLD COUNT W/DIF F lymphocytes 38.3 % 16.0-4 7.0 Not Available [facility] (Lab) [address] [place], [address], 05/20/2023 15:08:09 05/20/20 23 05/20/2023 CBC/C OMPLE TE BLD COUNT W/DIF F monocytes 6.6 % 5.0-12 .0 Not Available [facility] (Lab) [address] [place], [address], 05/20/2023 15:08:09 05/20/20 23 05/20/2023 CBC/C OMPLE TE BLD COUNT W/DIF F eosinophils 2.6 % 1.0-7. 0 Not Available [facility] (Lab) [address] [place], [address], 05/20/2023 15:08:09 05/20/20 23 05/20/2023 CBC/C OMPLE TE BLD COUNT W/DIF F basophils 0.5 % 0.0-2. 0 Not Available [facility] (Lab) [address] [place], [address], 05/20/2023 15:08:09 05/20/20 23 05/20/2023 CBC/C OMPLE TE BLD COUNT W/DIF F immature granulocytes 0.0 % 0.00-0 .50 Not Available [facility] (Lab) [address] [place], [address], 05/20/2023 15:08:09 05/20/20 23 05/20/2023 CBC/C OMPLE TE BLD COUNT W/DIF F neutrophils, absolute count 2.85 x10'3 /uL 1.5-8. 0 Not Available [facility] (Lab) [address] [place], [address], 05/20/2023 15:08:09 05/20/20 23 05/20/2023 CBC/C OMPLE TE BLD COUNT W/DIF F lymphocytes, absolute count 2.10 x10'3 /uL 1.07-3 .43 Not Available [facility] (Lab) [address] [place], [address], 05/20/2023 15:08:09 05/20/20 23 05/20/2023 CBC/C OMPLE TE BLD COUNT W/DIF F monocytes, absolute count 0.36 x10'3 /uL 0.29-0 .99 Not Available [facility] (Lab) [address] [place], [address], 05/20/2023 15:08:09 05/20/20 23 05/20/2023 CBC/C OMPLE TE BLD COUNT W/DIF F eosinophils, absolute count 0.14 x10'3 /uL 0.02-0 .53 Not Available [facility] (Lab) [address] [place], [address], 05/20/2023 15:08:09 05/20/20 23 05/20/2023 CBC/C OMPLE TE BLD COUNT W/DIF F basophils, absolute count 0.03 x10'3 /uL 0.01-0 .08 Not Available [facility] (Lab) [address] [place], [address], 05/20/2023 15:08:09 05/20/20 23 05/20/2023 CBC/C OMPLE TE BLD COUNT W/DIF F immature granulocytes ,absolute 0.00 x10'3 /uL 0.00-0 .05 Not Available [facility] (Lab) [address] [place], [address], 05/20/2023 15:08:09 05/20/20 23 05/20/2023 CBC/C OMPLE TE BLD COUNT W/DIF F nucleated red blood cells 0.0 % -0 Not Available [facility] (Lab) [address] [place], [address], 05/20/2023 15:08:09 05/20/20 23 05/20/2023 CBC/C OMPLE TE BLD COUNT W/DIF F NRBC# 0.00 x10'3 /uL Not Available [facility] (Lab) [address] [place], [address], 05/20/2023 15:08:09 05/20/20 23 05/20/2023 COMPR EHENS BERNARDA METAB OLIC PANEL sodium 137 mmol/ L 137-14 5 Not Available [facility] (Lab) [address] [place], [address], 05/20/2023 16:54:23 05/20/20 23 05/20/2023 COMPR EHENS BERNARDA METAB OLIC PANEL potassium 4.1 mmol/ L 3.5-5. 1 Not Available [facility] (Lab) [address] [place], [address], 05/20/2023 16:54:23 05/20/20 23 05/20/2023 COMPR EHENS BERNARDA METAB OLIC PANEL chloride 101 mmol/ L 98-107 Not Available [facility] (Lab) [address] [place], [address], 05/20/2023 16:54:23 05/20/20 23 05/20/2023 COMPR EHENS BERNARDA METAB OLIC PANEL carbon dioxide 29 mmol/ L 22-30 Not Available [facility] (Lab) [address] [place], [address], 05/20/2023 16:54:23 05/20/20 23 05/20/2023 COMPR EHENS BERNARDA METAB OLIC PANEL anion gap 11.1 mmol/ L 14-22 low Not Available [facility] (Lab) [address] [place], [address], 05/20/2023 16:54:23 05/20/20 23 05/20/2023 COMPR EHENS BERNARDA METAB OLIC PANEL glucose 102 mg/dL 70-99 high Not Available [facility] (Lab) [address] [place], [address], 05/20/2023 16:54:23 05/20/20 23 05/20/2023 COMPR EHENS BERNARDA METAB OLIC PANEL BUN 9 mg/dL 8-19 Not Available [facility] (Lab) [address] [place], [address], 05/20/2023 16:54:23 05/20/20 23 05/20/2023 COMPR EHENS BERNARDA METAB OLIC PANEL creatinine 0.80 mg/dL 0.66-1 .25 Not Available [facility] (Lab) [address] [place], [address], 05/20/2023 16:54:23 05/20/20 23 05/20/2023 COMPR EHENS BERNARDA METAB OLIC PANEL GFR >60 Refer ence Range : [place] ge GFR Healt hy Adult : >60 mL/mi n/1.7 3 m2 Chron ic Kidne y Disea se: 15-60 mL/mi n/1.7 3 m2 Kidne y Failu re: <15/m L/min /1.73 m2 www.n iddk. nih.g ov The MDRD study equat ion has not been valid ated in child imtiaz <18 years of age; pregn ant women ; the elder ly >85 years of age; or in some racia l or ethni c subgr oups, such as [facility] nics. Outsi de the valid ated mihai eters , estim ated GFR is less accur ate, requi ring clini brent judgm ent on a case- by-ca se basis . Clini brent inter preta tion for other races and ages must be made by the clini florentino. The MDRD study equat ion has not been valid ated for the evalu ation of serum creat inine relat ed to nutri elenita l statu s or medic ation usage . For perso ns <18 years of age, a pedia tric GFR calcu lator is avail able on the [facility] websi te: https :[email or web address] palmer.[email or web address] [place].o hua/pr ofess ional s/kdo qi/gf r_cal culat or Not Available [facility] (Lab) [address] [place], [address], 05/20/2023 16:54:23 05/20/20 23 05/20/2023 COMPR EHENS BERNARDA METAB OLIC PANEL alkaline phosphatase 87 U/L 38-126 Not Available [facility] (Lab) [address] [place], [address], 05/20/2023 16:54:23 05/20/20 23 05/20/2023 COMPR EHENS BERNARDA METAB OLIC PANEL alanine aminotransfe rase 25 U/L 0-50 Not Available [facility] (Lab) [address] [place], [address], 05/20/2023 16:54:23 05/20/20 23 05/20/2023 COMPR EHENS BERNARDA METAB OLIC PANEL aspartate aminotransfe rase 29 U/L 15-46 Not Available [facility] (Lab) [address] [place], [address], 05/20/2023 16:54:23 05/20/20 23 05/20/2023 COMPR EHENS BERNARDA METAB OLIC PANEL bilirubin, total 0.60 mg/dL 0.20-1 .30 Not Available [facility] (Lab) [address] [place], [address], 05/20/2023 16:54:23 05/20/20 23 05/20/2023 COMPR EHENS BERNARDA METAB OLIC PANEL calcium 8.8 mg/dL 8.4-10 .2 Not Available [facility] (Lab) [address] [place], [address], 05/20/2023 16:54:23 05/20/20 23 05/20/2023 COMPR EHENS BERNARDA METAB OLIC PANEL total protein 7.1 g/dL 6.3-8. 2 Not Available [facility] (Lab) [address] [place], [address], 05/20/2023 16:54:23 05/20/20 23 05/20/2023 COMPR EHENS BERNARDA METAB OLIC PANEL albumin 4.0 g/dL 3.4-5. 0 Not Available [facility] (Lab) [address] [place], [address], 05/20/2023 16:54:23 05/20/20 23 05/20/2023 COMPR EHENS BERNARDA METAB OLIC PANEL globulin 3.1 g/dL 2.6-4. 2 Not Available [facility] (Lab) [address] [place], [address], 05/20/2023 16:54:23 05/20/20 23 05/20/2023 COMPR EHENS BERNARDA METAB OLIC PANEL A/G ratio 1.3 ratio 1.0-2. 0 Not Available [facility] (Lab) [address] [place], [address], 05/20/2023 16:54:23 05/20/20 23 05/20/2023 LIPID PANEL cholesterol 124 mg/dL 140-19 9 low [facility] NSUS RECOM MENDA TION FOR MICHAEL STERO L: ADULT CHILD LOW RISK: <200 <170 BORDE RLINE : <200- 239 ----- HIGH RISK: >240 >200 Not Available [facility] (Lab) [address] [place], [address], 05/20/2023 16:54:25 05/20/20 23 05/20/2023 LIPID PANEL triglyceride s 77 mg/dL 0-150 [facility] NSUS REPOR T RECOM MENDA TION FOR TRIGL YCERI RENEE: ADULT CHILD LOW RISK: <150 ----- BODER LINE: 150-1 99 ----- HIGH RISK: >200 ----- Not Available [facility] (Lab) [address] [place], [address], 05/20/2023 16:54:25 05/20/20 23 05/20/2023 LIPID PANEL HDL cholesterol 33 mg/dL 40- low Not Available [facility] (Lab) [address] [place], [address], 05/20/2023 16:54:25 05/20/20 23 05/20/2023 LIPID PANEL LDL cholesterol, calculated 76 mg/dL 0-130 [facility] NSUS REPOR T RECOM MENDA TIONS FOR LDL: ADULT CHILD LOW RISK <130 <110 (OPTI MAL LDL) <100 ----- BORDE RLINE : 130-1 59 ----- HIGH RISK: >160 >130 A TRIGL YCERI DE RESUL T >400 INVAL IDATE S THE CALCU LATIO N FOR LDL FRACT IONAT ION - THE LDL RESUL T WILL NOT BE REPOR YASIR. Not Available [facility] (Lab) [address] [place], [address], 05/20/2023 16:54:25 05/20/20 23 05/20/2023 PSA SCREE N PSA medicare screen 0.99 NG/mL 0.00-4 .00 Not Available [facility] (Lab) [address] [place], [address], 05/20/2023 17:23:29 03/30/20 22 03/30/2022 XR, knee [facility] [address] [place] [address] Patien t Name: LEONIDES STAHL Access ion #: [id number] Sex: M : 1960 0 Locati on: RAD Attend ing Physic debbie: EGNET RILEY Orderi ng Physic debbie: GENET RILEY Exam Date: 022 2:04 PM Exam Name: XR KNEE LT 3V Admitt ing Diagno sis(es ): RADIOL OGY REPORT - FINAL EXAM: XR KNEE LT 3V HISTOR Y: PAIN LT KNEE 61-yea r-old male with left knee pain medial ly, poppin g, no known injury . COMPAR TOREY: None availa ble. TECHNI QUE: 3 views of the left knee were perfor med. FINDIN GS: No acute fractu re is identi fied about the left knee. There are medial compar tment margin al osteop hytes and mild joint space narrow ing. There are small patell ofemor al margin al osteop hytes. No eviden ce of signif icant joint effusi on. Page 1 of 2 [facility] Patien t Name: LEONIDES STAHL ion #: [id number] Sex: M : 1960 0 Exam Date: 2:04 PM Exam Name: XR KNEE LT 3V Admitt ing Diagno sis(es ): IMPRES ISELA: 1. No fractu re of the left knee. 2. Degene rative change s of the medial and patell ofemor al compar tments . Create d and electr onical ly signed by: Johnson mccall MD Signed Date: 3:19 PM (CT) Dictat ed by: Johnson mccall MD DD: 3:19 PM (CT) DT: 3:19 PM (CT) Page 2 of 2 [id number] [facility] (Imaging) [address] [facility], [place], [address], 07/28/2022 05:02:18 05/26/20 22 XR, knee No observ ation record ed. MIGRATION. [facility] [place] [address], [place], [address], 07/28/2022 05:02:18 08/03/19 23 05/19/2022 US, echoc ardio gram No observ ation record ed. cyahl Not Available 2022 16:40:01 08/03/19 23 05/19/2022 US, echoc ardio gram No observ ation record ed. cyahl Not Available 2022 16:40:31 07/10/19 24 07/07/2023 US, echoc ardio gram No observ ation record ed. [email or web address] [place] [address] [facility] [address], [place], [address], 07/19/2023 13:10:35 07/10/19 24 07/07/2023 cheyannei elba/sophia javed tic resul t No observ ation record ed. [email or web address] [facility] [address], [place], [address], 07/19/2023 13:10:49 Result Notes None recorded. Problems Name Problem SNOMED Code Status Onset Date Resolution Date Notes Provider Name and Address Organization Details Recorded Time Benign essential hypertens ion 7742819 Active Not Available [facility] 3 06:42:39 Dyslipide rachel 802071345 Active Not Available [facility] 3 06:42:39 Glycosuri a 36311951 Active Not Available [facility] 3 06:42:39 Pain of left knee joint 56721203003 4107 Active 2021 Not Available [facility] 3 06:42:39 Cough 84787106 Active Not Available [facility] 3 06:42:39 Coronary arteriosc lerosis 49609572 Active 2019 CABG [facility] 2019 normal ejection fraction. Sheikh to LAD. Radial to OM 1 and OM 2. 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 Procedures Surgical History Date Name Laterality Status Provider Name and Address Organization Details Recorded Time 0 Cardiac Cath completed Not Available [facility] 023 04:42:59 0 coronary artery bypass grafts x 4 completed Not Available [facility] 07/28/2022 04:42:59 0 Cardiac Cath completed Not Available [facility] 023 04:42:59 Ankle Surgery completed Not Available [facility] 07/28/2022 04:42:59 Imaging Results Imaging Date Name Status LastModified by Organization Details LastModified Time 05/26/2022 XR, knee completed [id number] [facility] [place] [address], [place], [address], 07/28/2022 05:02:18 03/30/2022 XR, knee completed [id number] [facility] (Imaging) [address] [facility], [place], [address], 07/28/2022 05:02:18 05/19/2022 US, echocardiogram completed Inform ation not available 08/02/2022 16:40:01 05/19/2022 US, echocardiogram completed Inform ation not available 08/02/2022 16:40:31 07/07/2023 US, echocardiogram completed [email or web address] [facility] [address], [place], [address], 07/19/2023 13:10:35 07/07/2023 imaging/diagnostic result completed [facility] [address], [place], [address], 07/19/2023 13:10:49 Procedure Notes None recorded. Medical Equipment None Reported. Allergies No known drug allergies Medications Name Sig Start Date Stop Date Status Note LastModified by Organization Details LastModified Time amoxicillin 500 mg capsule Take 1 capsule every 8 hours by oral route for 7 days. active Not Available Not Available No t Available amiodarone 200 mg tablet one tab daily 08/13 completed Not Available Not Available Not Available lisinopril 20 mg tablet Take 1 tablet(s) every day by oral route. 12/04 completed Not Available Not Available Not Available prednisone 20 mg tablet active Not Available Not Available Not Available valsartan 80 mg tablet TAKE 1 TABLET BY MOUTH TWICE A DAY active Not Available Not Available No t Available penicillin V potassium 500 mg tablet 11/11 completed Not Available Not Available Not Available acetaminoph en 300 mg-codeine 30 mg tablet 11/11 completed Not Available Not Available Not Available aspirin 81 mg tablet,leatha yed release TAKE 1 TABLET BY MOUTH EVERY DAY active Not Available Not Available No t Available tramadol 50 mg tablet 08/13 completed Not Available Not Available Not Available amiodarone 400 mg tablet 07/16 completed Not Available Not Available Not Available lisinopril 10 mg tablet Take 1 tablet every day by oral route. 05/16 completed Not Available Not Available Not Available hydrochloro thiazide 12.5 mg capsule TAKE 1 CAPSULE BY MOUTH EVERY DAY 02/06 completed Not Available Not Available Not Available furosemide 20 mg tablet TAKE 1 TABLET BY MOUTH IN THE MORNING NEEDED 10/23 completed Not Available Not Available Not Available Zetia 10 mg tablet Take 1 tablet every day by oral route. 2023 active Not Available Not Available Not Avai lable rosuvastati n 10 mg tablet TAKE 1 TABLET DAILY 11/28 completed Not Available Not Available Not Available rosuvastati n 20 mg tablet TAKE 1 TABLET BY MOUTH EVERY DAY active Not Available Not Available No t Available tadalafil 5 mg tablet TAKE 1 TABLET BY MOUTH EVERY DAY 10/23 completed Not Available Not Available Not Available metoprolol tartrate 25 mg tablet /4 tab bid 11/28 completed Not Available Not Available Not Available sildenafil (pulmonary hypertensio n) 20 mg tablet TAKE 3 TABLETS BY MOUTH 45 MINUTES PRIOR TO INTERCOUR SE active Not Available Not Available No t Available Stool Softener 08/13 completed Not Available Not Available Not Available Suprep Bowel Prep Kit 17.5 gram-3.13 gram-1.6 gram oral solution 12/04 completed Not Available Not Available Not Available Xarelto 2.5 mg tablet TAKE 1 TABLET BY MOUTH TWICE A DAY active Not Available Not Available No t Available Vitals Date Recorded Body mass index (BMI) Body height Heart rate Body temperature Body weight Systolic blood pressure Diastolic blood pressure Provider Name and Address Organization Details Last Updated DateTime 2 35.6 kg/m2 170.18 cm 63 /min 98.1 [degF] 069157. 47 g 140 mm[Hg] 90 mm[Hg] Not Available [facility] 3 04:50:28 Date Recorded Body mass index (BMI) Body height Body weight Provider Name and Address Organization Details Last Updated DateTime 05/26/2022 35.1 kg/m2 172.72 cm 776396.84 g Not Available [facility] 07/28/2022 04:50:32 Date Recorded Body height Body mass index (BMI) Body weight Body temperature Heart rate Systolic blood pressure Diastolic blood pressure Provider Name and Address Organization Details Last Updated DateTime 3 172.72 cm 34.5 kg/m2 371818. 47 g 98.2 [degF] 78 /min 142 mm[Hg] 80 mm[Hg] Dyan peters RN [facility] [employer] [facility] 3 15:32:04 Date Recorded Body height Body mass index (BMI) Body weight Body temperature Heart rate Systolic blood pressure Diastolic blood pressure Provider Name and Address Organization Details Last Updated DateTime 3 172.72 cm 34.8 kg/m2 276745. 65 g 97.7 [degF] 55 /min 122 mm[Hg] 80 mm[Hg] NICKIE Bradshaw [facility] [employer] [facility] 3 16:11:13 Date Recorded Body height Body mass index (BMI) Body weight Body temperature Heart rate Oxygen saturation Oxygen saturation in Arterial blood by Pulse oximetry Systolic blood pressure Diastolic blood pressure Provider Name and Address Organization Details Last Updated DateTime 4 172.72 cm 33.8 kg/m2 151788. 66 g 97.8 [degF] 62 /min 98 % 98 % 156 mm[Hg] 94 mm[Hg] Nan Olivo MA [facility] [employer] [facility] 4 15:43:46 Social History Question Answer Notes LastModified by Organization Details LastModified Time Tobacco Smoking Status Never Smoker SERENA Mohan, [facility] [employer] [facility] 08/02/2022 15:22:09 Do You Have An Advance Directive? No [id number] Information not available 07/28/2022 What Is Your Level Of Alcohol Consumption? Occasional [id number] Information not available 07/28/2022 What Is Your Level Of Caffeine Consumption? None [id number] Information not available 07/28/2022 How Much Tobacco Do You Chew? None [email or web address].030 [id number] Information not available 07/28/2022 In The 14 Days Before Symptom Onset, Have You Had Close Contact With A Laboratory-confi rmed COVID-19 While That Case Was Ill? No [email or web address] Information not available 08/02/2022 In The 14 Days Before Symptom Onset, Have You Had Close Contact With A Person Who Is Under Investigation For COVID-19 While That Person Was Ill? No [email or web address] Information not available 08/02/2022 Are You Currently Employed? Yes [email or web address] Information not available 08/02/2022 What Type Of Diet Are You Following? REGULAR [id number] Information not available 07/28/2022 Which Illicit Or Recreational Drugs Have You Used? None [email or web address] Information not available 08/02/2022 Do You Or Have You Ever Used E-cigarettes Or Vape? Never Used Electronic Cigarettes [email or web address] Information not available 08/02/2022 What Is The Highest Grade Or Level Of School You Have Completed Or The Highest Degree You Have Received? 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 No Information not available 08/02/2022 What Is The Fluoride Status Of Your Home? Unknown [email or web address] Information not available 08/02/2022 Are There Any Guns Present In Your Home? No [email or web address] Information not available 08/02/2022 Do You Use Insect Repellent Routinely? No [email or web address] Information not available 08/02/2022 Where Do You Live? SingleLevelHouse [email or web address] Information not available 08/02/2022 Do You Have A Medical Power Of Environmental Field Team Member? No Information not available 08/02/2022 What Was The Date Of Your Most Recent Tobacco Screening? 12/20/2022 [email or web address] Information not available 12/20/2022 Do You Have Any Pets? Yes [email or web address] Information not available 08/02/2022 What Is Your Relationship Status? [email or web address] Information not available 07/28/2022 Do You Use Your Seat Belt Or Car Seat Routinely? Yes [email or web address] Information not available 08/02/2022 Do You Have Smoke And Carbon Monoxide Detectors In Your Home? Yes [email or web address] Information not available 08/02/2022 Are You Passively Exposed To Smoke? No [email or web address] Information not available 08/02/2022 Do You Or Have You Ever Used Smokeless Tobacco? Never Used Smokeless Tobacco [email or web address].[id number] [id number] Information not available 07/28/2022 Are There Any Smokers In Your House? No [email or web address] Information not available 08/02/2022 How Much Tobacco Do You Smoke? No [email or web address] [id number] Information not available 07/28/2022 What Types Of Sporting Activities Do You Participate In? Ajit [email or web address] Information not available 08/02/2022 Do You Feel Stressed (tense, Restless, Nervous, Or Anxious, Or Unable To Sleep At Night)? [id number] [email or web address] Information not available 08/02/2022 Do You Use Any Illicit Or Recreational Drugs? No [email or web address] Information not available 08/02/2022 Do You Use Sunscreen Routinely? Yes [email or web address] Information not available 08/02/2022 Has Tobacco Cessation Counseling Been Provided? No Not Needed-n ever Smoked [email or web address] Information not available 08/02/2022 How Many Years Have You Smoked Tobacco? 0 [email or web address] Information not available 08/02/2022 Have You Recently Traveled Abroad? No [email or web address] Information not available 08/02/2022 Do You Have Any Dietary Restrictions? No Information not available 08/02/2022 Do You Or Have You Ever Used Any Other Forms Of Tobacco Or Nicotine? No Information not available 08/02/2022 Sex: Male Functional Status Question Answer Note LastModified by Organizat ion Details LastModified Time What is your exercise level? Moderate [id number] Information not available 07/28/2022 Mental Status None recorded. Family History Relationship Description Onset Age of this Age Resolved Age Notes LastModified by Organization Details LastModified Time Mother General health good [email or web address] Not available 15:22:06 Father Alzheimer's disease [email or web address] Not available 10/2022 15:22:07 Father Hypertensive disorder [id number] Not available 07/28/2022 04:43:07 Father Heart disease [id number] Not available 07/28/2022 04:43:07 Medical History Condition Response NERVE DISEASE N BLINDNESS N RHEUMATIC FEVER N KIDNEY STONES N BLADDER PROBLEMS N MRSA N OTHER # 1 N POLIO N LUNG DISEASE/DISORDER N RADIATION / CHEMOTHERAPY N COPD N Other # 2 N BLOOD DISEASES N EAR OR HEARING PROBLEMS N MUMPS N DEPRESSION (INCLUDING POST ) N BOWEL PROBLEMS N STROKE/TIA N ULCERS N BENIGN PROSTATIC HYPERPLASIA N MEASLES N MYOCARDIAL INFARCTION N OBESITY N GERD/NAUSEA N ANEURYSM N URINARY/BLADDER/KIDNEY PROBLEMS Y CORONARY ARTERY DISEASE (CAD) Y ADDICTION CONCERNS N Impotence Y ENDOMETRIOSIS N USE OF BLOOD THINNERS Y SKIN PROBLEMS N GASTROINTESTINAL DISORDER N PERIPHERAL VASCULAR DISEASE N MUSCLE,JOINT OR BONE PROBLEMS N GASTROINTESTINAL BLEEDING N BLOOD CLOTS N ASTHMA N CATARACTS N ERECTILE DYSFUNCTION N VARICOSITIES N GI PROBLEMS N Low Testosterone N INFERTILITY N AIDS/HIV N CHEMOTHERAPY / RADIATION N LIVER DISEASE N MALE HYPOGONADISM N HYPERTENSION Y Deficiency N TOURETTE'S N ANXIETY DISORDER N BLOOD TRANSFUSION N ANEMIA/BLOOD DISORDER N CHRONIC EAR INFECTIONS N BRONCHITIS N TUBERCULOSIS N GLAUCOMA N FOOT PROBLEM N DIVERTICULITIS N SLEEP APNEA N CHICKENPOX N INFECTIOUS DISEASE N PROSTATE N HEART ARRHYTHMIA N INSOMNIA N HIGH CHOLESTEROL / HYPERLIPIDEMIA Y HYPERTHYROIDISM N EYE PROBLEMS N EDEMA N CHRONIC PAIN SYNDROME N HYPOTHYROIDISM N CONSTIPATION N CAROTID BLOCKAGE N BACK / NECK PROBLEMS N HAVE YOU BEEN HOSPITALIZED OR SEEN IN [facility] IN THE PAST YEAR ? N ATHEROSCLEROSIS N BREAST PROBLEMS N DIALYSIS N ECZEMA N OSTEOPOROSIS N ARTHRITIS N APPENDICITIS N DIABETES, TYPE N BAD TEETH N ENT N HEARTBURN / REFLUX N AUTISM SPECTRUM DISORDER (ASD) N HEPATITIS / LIVER DISEASE N GOUT N SLEEP DISORDER N ALZHEIMER'S DISEASE N Brain Problems N HERPES N DEMENTIA N SEIZURES/EPILEPSY N HEADACHES/MIGRAINES N VASCULAR DISEASE N PACEMAKER N Blood Disorder N DIZZINESS N KIDNEY DISEASE N HEART DISEASE/HEART PROBLEMS Y MULTIPLE SCLEROSIS N CARDIAC ARRHYTHMIA N CANCER: SPECIFY N Gall Stones N ATRIAL FIBRILLATION N PULMONARY EMBOLISM N AUTOIMMUNE DISEASE N Immunizations Vaccine Type Date Status Note Provider Nam e and Address Organization Details Recorded Time COVID-19, mRNA, LNP-S, PF, 100 mcg/0.5mL dose or 50 mcg/0.25mL dose 08/22/2020 completed Not Available [facility] 3 06:42:39 COVID-19, mRNA, LNP-S, PF, 100 mcg/0.5mL dose or 50 mcg/0.25mL dose 07/25/2020 completed Not Available [facility] 3 06:42:39 Influenza, split virus, quadrivalent, PF 02/28/2020 completed Not Available [facility] 3 06:42:39 Influenza, split virus, quadrivalent, PF 04/16/2021 completed Not Available [facility] 3 06:42:39 Past Encounters Encounter ID Performer Location Encounter Start Date Encounter Closed Date Diagnosis/Indication Diagnosis SNOMED-CT Code Diagnosis ICD10 Code Diagnosis Note [id number] Jovan Riley MD [facility] [address] [address] 10/23/2020 00:00:00 10/27/2020 21:37:30 [id number] Jovan Riley MD S[facility] Internal Med [facility] [address] [address] 04/16/2021 00:00:00 04/16/2021 23:10:27 [id number] Jovan Riley MD S[facility] Internal Med [facility] [address] [address] 10/30/2021 00:00:00 11/30/2021 14:04:25 [id number] Jovan Riley MD [facility] Internal Med [facility] [address] [facility] [address] 03/30/2022 00:00:00 03/30/2022 21:13:11 [id number] Brandon Chen MD [facility] [place] [id number] [facility] [address] [place] [address] 05/26/2022 00:00:00 05/26/2022 16:37:18 [id number] Jovan Riley MD S_[facility] Internal Med [facility] [address] [address] 08/02/2022 15:17:23 08/02/2022 16:14:35 Benign essential hypertension 4332394 I10 Coronary arteriosclerosis 00809815 I25.10 Dyslipidemia 975609219 E 78.5 [id number] Jovan Riley MD [facility] [address] [facility] [address] [address] 12/20/2022 15:41:59 12/20/2022 17:04:03 Benign essential hypertension 5456308 I10 Dyslipidemia 229177510 E 78.5 Coronary arteriosclerosis 51336273 I25.10 [id number] Jovan Riley MD [facility] [place] [facility] [address] [facility] [place] [address] 06/13/2023 15:24:09 06/13/2023 16:20:55 Dyslipidemia 914615006 E78.5 Benign ess ential hypertension 5354369 I10 Coronary arteriosclerosis 87605256 I25.10 Health Concerns Section Related Observation LastModified by Organization Detai ls LastModified Time None Recorded Concern Status LastModified by Organization Details LastModified Time None Recorded Advance Directives Directive N: Payers Encounter Date Sequence Insurance Name Policy Number Policy Little Covered Member ID Little Member ID Guarantor Name 08/02/2022 1 [place] [id number] Leonides R Yang [id number] Leonides Yang 12/20/2022 1 [place] [id number] Leonides R Yang [id number] Loenides Yang 06/13/2023 1 [place] [id number] Leonides R Yang [id number] Leonides Yang Notes Date Note Type Note Provider Name and Address Organization Details Recorded Time 3 text/html CAD no chest painArthritis left kneeHypertension no headache or dizzinessDyslipidemia tries to follow low-fat diet Jovan Riley MD [address] [facility], [facility] [address], [place], [address], [employer] [facility] [employer] 08/03/2022 21:46:41 3 text/html Hypertension no headache no dizziness dyslipidemia is following low-fat CAD status post CABG no chest pain Jovan Riley MD [address] [facility], [facility] [address], [place], [address], [employer] [facility] [employer] 12/25/2022 18:27:33 4 text/html Hypertension no headache no dizziness dyslipidemia is following low-fat CAD status post CABG no chest pain Jovan Riley MD [address] [facility], [facility] [address], [place], [address], [facility] [employer] [facility] 06/20/2023 20:54:38
[2024-10-05 08:14] LABS: Basophils Absolute Auto 0.1 K/mm3 (0.0-0.1); Basophils Percent Auto 0.7 % (0.2-1.2); Eosinophils Absolute Auto 0.2 K/mm3 (0-0.3); Eosinophils Percent Auto 3.3 % (0-4.4); Hemoglobin 16.5 g/dL (14.0-18.0); Immature Granulocyte Absolute 0.02 K/mm3 (0.00-0.031); Immature Granulocyte Percent A 0.3 % (0-0.5); Lymphocytes Absolute Auto 2.63 K/mm3 (0.9-3.2); Lymphocytes Percent Auto 38.3 % (18.3-44.2); Mean Corpuscular Volume 87.9 fl (80-100); Mean Platelet Volume 9.1 fl (7.4-10.4); Monocytes Absolute Auto 0.6 K/mm3 (0.1-0.6); Monocytes Percent Auto 8.6 % (2.6-8.5); Neutrophils Absolute Auto 3.4 K/mm3 (1.3-6.7); Neutrophils Percent Auto 48.8 % (45.5-73.1); Platelet Count Result 287 k/mm3 (150-375); Red Blood Count 5.69 M/mm3 (4.6-6.20); Red Cell Distribution Width 12.9 % (11.5-14.5); White Blood Count 6.9 K/mm3 (4.5-10.0)
[2024-10-05 08:24] LABS: Alanine Aminotransferase 33 U/L (6-50); Albumin Level 4.2 g/dL (3.5-5.1); Alkaline Phosphatase 92 U/L (38-126); Anion Gap 7 mmol/L (4-12); Aspartate Amino Transferase 36 U/L (17-59); Bilirubin,Total 0.8 mg/dL (0.2-1.3); Blood Urea Nitrogen 14 mg/dL (9-20); Calcium 8.8 mg/dL (8.4-10.2); Carbon Dioxide 28 mmol/L (22-30); Chloride 103 mmol/L (98-107); Cholesterol 113 mg/dL (0-200); Estimated Glomerular Filt Rate > 60; Glucose 105 mg/dL (65-110); HDL Direct 42 mg/dL; Potassium 4.5 mmol/L (3.4-5.0); Sodium 138 mmol/L (137-145); Triglycerides 73 mg/dL (<150)
[2024-10-05 08:35] LABS: LDL Cholesterol Direct 46 mg/dL
== END 2024-10-05 07:26 | disposition home or self-care (01) ==
PROVIDERS: PCP Internal Medicine; Visit Provider Internal Medicine
DX: I10 Essential (primary) hypertension (principal)
CPT/HCPCS: 36415; 80053; 80061; 85025